=== PATIENT | male | born 1990 | race Caucasian/White ===

== ENCOUNTER 2019-02-02 18:59 | Emergency (ER) | payer MEDICAID, SELFPAY ==
--- NOTE | ~2019-02-02 | CT_ITS ---
EXAMINATION: CT abdomen pelvis w con DATE: 02/02/2019 21:09 INDICATION: Lower abdominal pain. TECHNIQUE: Computed tomography (CT) of the abdomen and pelvis was performed with 100 mL Omnipaque-350 intravenous contrast. Automated exposure control and iterative reconstruction technique were employe d. The dose-length product was 635.96 mGy-cm. COMPARISON: 05/18/2018 and 10/25/2014 FINDINGS: Chronic 6 mm pleural-based granuloma at the lateral right lower lobe. Lung bases are otherwise clear. Heart size is normal. No pericardial or pleural effusion. Liver, gallbladder, spleen, bilateral adre nal glands and kidneys are normal. 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 There is mild colonic diverticulosis with a sigmoid predominance. There is no adjacent inflammatory change to suggest diverticulitis. Sm all bowel and appendix are normal. Bladder and prostate are unremarkable. Small fat-containing umbili tan hernia. No free intraperitoneal gas or fluid. No pathologically enlarged abdominal or pelvic lymp hadenopathy. Chronic small bilateral fat-containing inguinal hernias. Subtle 2.5 cm sclerotic lesion at the right side of the L3 vertebral body. Dense T12 bone island. IMPRESSION: 1. No acute intra-abdominal/pelvic process. 2. Subtle 2.5 cm sclerotic lesion at the right side of the L3 vertebral body. There appeared to be th ickened trabeculated cephalad margin suggesting the possibility of hemangioma but would recommend fur ther evaluation with pre and postcontrast lumbar spine MR and/or bone scan. 3. 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 Could consider heat damaged red blood cell or sulfur colloid scan with SPECT imaging for more definitive determination. Reviewed, dictated and finalized at location A. [facility] IMPRESSION: 1. No acute intra-abdominal/pelvic process. 2. Subtle 2.5 cm sclerotic lesion at the right side of the L3 vertebral body. T here appeared to be thickened trabeculated cephalad margin suggesting the possi bility of hemangioma but would recommend further evaluation with pre and postco ntrast lumbar spine MR and/or bone scan. 3. 3.3 x 2.3 cm mass at the tail of the pancreas which is without significant i nterval change back to 2015 and which appears isodense to the spleen most likel y representing an intrapancreatic accessory spleen. Could consider heat damaged red blood cell or sulfur colloid scan with SPECT imaging for more definitive d etermination.
[2019-02-02 19:27] VITALS: BP 154/89; PULSE 74; RESP 20; TEMP 36.4; O2SAT 96
[2019-02-02] MEDS: SODIUM CHLORIDE 0.9% IV 1,000 ML 999 ML IV CONT (19:48)
[2019-02-02] MEDS: PANTOPRAZOLE SODIUM IV 40 MG VIAL IV PUSH (19:49)
[2019-02-02] MEDS: KETOROLAC 30 MG/ML VIAL (*BKC) IV PUSH (19:49)
[2019-02-02] MEDS: ONDANSETRON INJ 4 MG/2 ML VIAL IV PUSH (19:50)
[2019-02-02 20:20] LABS: Basophils Absolute Auto 0.04 K/mm3 (0.00-0.10); Basophils Percent Auto 0.6 % (0.0-1.0); Eosinophils Absolute Auto 0.11 K/mm3 (0.02-0.50); Eosinophils Percent Auto 1.6 % (1.0-6.0); Hematocrit 38.3 % (40.0-54.0); Hemoglobin 13.5 g/dL (14.0-18.0); Immature Granulocyte Absolute 0.02 K/mm3 (0.00-0.00); Immature Granulocyte Percent A 0.3 % (0.0-0.0); Lymphocytes Absolute Auto 2.03 K/mm3 (1.10-4.50); Lymphocytes Percent Auto 29.3 % (18.0-42.0); Mean Corpuscular HGB Conc 35.2 g/dL (32.0-36.0); Mean Corpuscular Hemoglobin 33.2 pg (27.0-31.0); Mean Corpuscular Volume 94.1 fL (78.0-102.0); Mean Platelet Volume 9.9 fl (8.7-11.0); Monocytes Absolute Auto 0.58 K/mm3 (0.10-0.90); Monocytes Percent Auto 8.4 % (2.0-11.0); Neutrophils Absolute Auto 4.2 K/mm3 (1.7-7.2); Neutrophils Percent Auto 59.8 % (50.0-70.0); Platelet Count Result 246 K/mm3 (150-420); Red Blood Count 4.07 M/mm3 (4.70-6.10); Red Cell Distribution Width 12.3 % (11.6-14.4); White Blood Count 6.9 K/mm3 (4.8-10.8)
--- NOTE | 2019-02-02 20:29 | ED.ABDPAIN ---
HPI - Abdominal Pain General Chief Complaint: Abdominal Pain Stated Complaint: STOMACH PAIN Source: patient Mode of arrival: ambulatory Limitations: no limitations History of Present Illness MD elicited complaint: abdominal pain Pertinent past history: none Onset (ago): day(s) Pain Consistency: constant Location: LLQ Severity: moderate Pain scale (0-10): 8 Quality: aching Radiation: none Migration to: no migration Exacerbating factors: nothing and eating Relieving factors: nothing Context: denies foreign travel Associated symptoms: denies other symptoms Related Data Home Medications Medication Instructions Recorded Confirmed ranitidine HCl [Acid Control 300 mg PO DAILY 02/02/19 02/02/19 (ranitidine)] verapamil 120 mg PO DAILY 02/02/19 02/02/19 Allergies Allergy/AdvReac Type Severity Reaction Status Date / Time No Known Allergies Allergy Verified 02/02/19 19:21 Review of Systems Review of Systems: All systems reviewed & are unremarkable except as noted in HPI and below Exam Const: General: no acute distress and alert Nutritional Appearance: well nourished Orientation/consciousness: oriented x3 HENMT: Head: normal to inspection Neck: Neck: normal visual inspection and no lymphadenopathy Chest: Chest palpation & inspection: normal inspection of the chest Resp: Effort & Inspection: normal respiratory effort Cardio: Rate: regular rate Rhythm: regular rhythm GI: Palpation (GI): Yes soft Auscultation: normal bowel sounds : Testes: normal Neuro: General: oriented x3 and moves all extremities Extrem: General: normal to inspection Psych: Mental Status: mental status grossly normal Affect: normal affect Attitude: cooperative Course Reevaluation(s) Reevaluation #1: patient symptoms have imprved after recieving pain medication and appears and feels comfortable, discussed results of his CT abd, and with his low potassium will give the pt 40 MEQ of KCL Date: 02/02/19 Time: 21:43 Vital Signs Vital signs: Vital Signs Temperature 36.4 C L 02/02/19 19:27 Pulse Rate 74 02/02/19 19:27 Respiratory Rate 20 02/02/19 19:27 Blood Pressure 154/89 H 02/02/19 19:27 Pulse Oximetry 96 02/02/19 19:27 Temperature 36.4 C L 02/02/19 19:27 Pulse Rate 74 02/02/19 19:27 Respiratory Rate 20 02/02/19 19:27 Blood Pressure 154/89 H 02/02/19 19:27 Pulse Oximetry 96 02/02/19 19:27 MDM - Abdominal Pain Lab Data Attestation: I reviewed the patient's lab results. Result diagrams: 02/02/19 20:05 02/02/19 20:05 Labs: Lab Results 02/02/19 02/02/19 Range/Units 20:05 20:05 WBC Pending RBC Pending Hgb Pending Hct Pending MCV Pending MCH Pending MCHC Pending RDW Pending Plt Count Pending MPV Pending Immature Gran % (Auto) Pending Neut % (Auto) Pending Lymph % (Auto) Pending [place] % (Auto) Pending Eos % (Auto) Pending Baso % (Auto) Pending Lymph # (Auto) Pending [place] # (Auto) Pending Eos # (Auto) Pending Baso # (Auto) Pending Abs Immat Gran (auto) Pending Absolute Neuts (auto) Pending Absolute Nucleated RBC Pending Nucleated RBC % Pending Sodium Pending Potassium Pending Chloride Pending Carbon Dioxide Pending Anion Gap Pending BUN Pending Creatinine Pending Estim Creat Clear Calc Pending Estimated GFR Pending Glucose Pending Calculated Osmolality Pending Calcium Pending Total Bilirubin Pending AST Pending ALT Pending Alkaline Phosphatase Pending Total Protein Pending Albumin Pending Lipase Pending Imaging Data Attestation: I personally reviewed and interpreted this imaging study as follows: Critical Care Time Critical Care Time Critical Care Time: No Discharge Plan Discharge Clinical Impression: Abdominal pain Qualifiers: Abdominal location: left
[2019-02-02 20:37] LABS: Alanine Aminotransferase 32 U/L (16-63); Albumin Level 3.9 g/dL (3.4-5.0); Alkaline Phosphatase 100 U/L (46-116); Aspartate Amino Transferase 27 U/L (15-37); Bilirubin,Total 1.1 mg/dL (0.00-1.00); Blood Urea Nitrogen 16 mg/dL (7-18); Calcium 8.3 mg/dL (8.5-10.1); Carbon Dioxide 24 mmol/L (21-32); Chloride 104 mmol/L (98-108); Estimated CRCL calculation 148 ml/min; Estimated Glomerular Filt Rate > 60; Glucose 96 mg/dL (70-99); Lipase 45 U/L (73-393); Osmolality Calculated 293 mOsm/kg (285-295); Sodium 141 mmol/L (136-145); Total Protein 7.4 g/dL (6.4-8.2)
[2019-02-02 20:38] LABS: Add Urine Microscopic? YES; Appearance Urine Sl Cloudy (Clear); Bilirubin Urine 2+ (Negative); Blood Urine Negative (Negative); Color Urine Amber (Yellow); Glucose Urine UA Negative (Negative); Ketones Urine 1+ (Negative); Leukocyte Esterase Ur Negative (Negative); Nitrate Urine Negative (Negative); Protein Urine Trace (Negative)
[2019-02-02 20:43] LABS: Amphetamine Screen Urine NEG. (Negative); Barbiturate Screen Urine NEG. (Negative); Benzodiazepines Screen Urine NEG. (Negative); Cannabinoid Screen Urine POS. (Negative); Cocaine Screen Urine NEG. (Negative); Methadone Screen Urine NEG. (Negative); Opiate Screen Urine NEG. (Negative); Phencyclidine Screen Urine NEG. (Negative)
[2019-02-02 21:14] LABS: Squamous Epithelial Cell Urine Rare /hpf (Few)
[2019-02-02 21:15] LABS: Mucus Urine Moderate /lpf
--- NOTE | 2019-02-07 16:12 | PC.NURSE ---
mikie entyr: 02/02/2019 @ 2059 1000ML 0.9% Normal Saline infused. discontinued the empty bag. IV site WNL.
== END 2019-02-02 21:56 | disposition home or self-care (01) ==
PROVIDERS: Emergency Provider Emergency Medicine; PCP Internal Medicine
DX: R10.32 Left lower quadrant pain (principal)
CPT/HCPCS: 36415; 74177; 80053; 80307; 81001; 83690; 85025; 96361; 96374; 96375; 99284; C9113; J1885; J2405; J7030; Q9967

== ENCOUNTER 2019-07-26 12:09 | Inpatient (IN) | payer OTHER, SELFPAY ==
--- NOTE | ~2019-07-26 | CT_ITS ---
EXAMINATION: CT abdomen pelvis w con DATE: 07/27/2019 13:37 INDICATION: Gastric pain and vomiting. Pancreatic mass seen on prior CT examination. TECHNIQUE: Computed tomography (CT) of the abdomen and pelvis was performed with 100 cc Omnipaque 350 intravenous contrast. The dose-length product was 432.44 mGy-cm. Automated exposure control and iter ative reconstruction technique were employed. COMPARISON: Comparison to multiple prior studies sequentially, with oldest reviewed study dated 03/2014. FINDINGS: There is a 3.3 x 2.4 cm pancreatic tail mass which is isodense to the spleen, without signi ficant interval change. There has been interval development of acute phlegmonous pancreatitis. No abs cess or pseudocyst formation is identified. Small amount of fluid in the right paracolic gutter. Mild diffuse bladder wall thickening. The liver, adrenal glands and kidneys are unremarkable. Gallbladder is moderately distended. Mildly p rominent retroperitoneal lymph nodes, likely reactive. Subtle lytic/sclerotic lesion of the L3 verteb ra on the right with slightly altered appearance compared with prior study. IMPRESSION: 1. Acute pancreatitis with moderate surrounding phlegmonous change. 2: Stable 3.3 cm pancreatic tail mass, isodense with the spleen. 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 3: Subtle change to mixed lytic/sclerotic lesion of L3. Recommend correlation with contrast-enhanced MRI or bone scan. 4: Diffuse concentric bladder wall thickening. Recommend correlation with urinalysis if there is cli nical concern for cystitis. Reviewed, dictated and finalized at location A. IMPRESSION: 1. Acute pancreatitis with moderate surrounding phlegmonous change. 2: Stable 3.3 cm pancreatic tail mass, isodense with the spleen. 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 3: Subtle change to mixed lytic/sclerotic lesion of L3. Recommend correlation w ith contrast-enhanced MRI or bone scan. 4: Diffuse concentric bladder wall thickening. Recommend correlation with urin alysis if there is clinical concern for cystitis.
--- NOTE | ~2019-07-26 | US_ITS ---
EXAMINATION: US right upper quadrant DATE: 07/29/2019 09:51 INDICATION: Right-sided epigastric pain. Pancreatitis. TECHNIQUE: Multiple grayscale and Doppler ultrasound images of the abdomen were obtained. COMPARISON: CT dated 07/27/2019 and ultrasound dated 04/09/2018 FINDINGS: Heterogeneous echogenicity at the body and more prominently at the partially visualized tail of the p ancreas consistent with edema in the setting of the given history of acute pancreatitis. Visualized p roximal inferior vena cava is normal. Liver has normal echogenicity and contour, with a smooth surfac e. No liver lesion identified. No intrahepatic biliary duct dilation suspected. Portal venous flow wa s seen in the hepatopetal, normal direction and has normal Doppler waveform. The gallbladder is alistair l in appearance. Subtle hypoechoic internal echogenic sludge in the gallbladder. No shadowing choleli thiasis. The common bile duct measures 4 mm, which is normal. Sonographic [place] sign was reported as negative by the restorative aide. IMPRESSION: 1. Heterogeneous echogenicity of the visualized pancreas consistent with edema in the setting of acut e pancreatitis. 2. Gallbladder sludge. No evident cholelithiasis. Reviewed, dictated and finalized at location A. IMPRESSION: 1. Heterogeneous echogenicity of the visualized pancreas consistent with edema in the setting of acute pancreatitis. 2. Gallbladder sludge. No evident cholelithiasis.
--- NOTE | ~2019-07-26 | XR_ITS ---
XR chest 2V DATE: 07/26/2019 12:52 INDICATION: Shortness of breath, chest pain. Epigastric pain and vomiting. TECHNIQUE: PA and lateral views COMPARISON: 04/08/2018 2 view chest FINDINGS: Normal heart size. No hilar or mediastinal enlargement. No pulmonary infiltrate or consolid ation, pleural effusion or pulmonary vascular congestion or pneumothorax. Gynecomastia is suggested. IMPRESSION: No active cardiopulmonary disease Reviewed, dictated and finalized at location A.
--- NOTE | 2019-07-26 12:19 | ED.ABDPAIN ---
HPI - Abdominal Pain General Chief Complaint: Abdominal Pain Stated Complaint: generalized abd pain Time Seen by Provider: 07/26/19 12:19 Source: patient Mode of arrival: ambulatory Limitations: no limitations History of Present Illness HPI narrative: 28-year-old man with a history of pancreatitis and alcoholism comes in today complaining of epigastric pain, dry heaves, belching and diarrhea that started last evening about 7 or 8. Patient states that he last drank 2 days ago. He has a history of allergies and so has had sinus pressure and nasal congestion but denies fever, sore throat, cough, shortness of breath, chest pain or sputum production. MD elicited complaint: abdominal pain Pertinent past history: other ( Pancreatitis) Onset (ago): hour(s) (16) Pain Consistency: constant Location: epigastric Severity: severe Quality: sharp Radiation: none Migration to: no migration Exacerbating factors: nothing Relieving factors: nothing Context: confirms history of similar episodes Associated symptoms: nausea, vomiting, diarrhea and anorexia Treatments prior to arrival: NSAIDs Related Data Home Medications Medication Instructions Recorded Confirmed ranitidine HCl [Acid Control 300 mg PO DAILY 02/02/19 02/02/19 (ranitidine)] verapamil 120 mg PO DAILY 02/02/19 02/02/19 Allergies Allergy/AdvReac Type Severity Reaction Status Date / Time No Known Allergies Allergy Verified 02/02/19 19:21 Review of Systems Constitutional: Constitutional: Denies chills, Reports fatigue, Denies fever(s) and Denies weakness Eyes: Eyes: Denies change in vision and Denies photophobia ENT: Reports as per HPI, Denies dysphagia, Reports nasal congestion and Denies sore throat Cardiovascular: Cardiovascular: Denies chest pain, Denies rapid heart rate and Denies radiating jaw, neck or arm pain Respiratory: Respiratory: Denies chest congestion, Denies cough, Denies dyspnea and Denies wheezing Gastrointestinal: Gastrointestinal: Reports as per HPI Genitourinary: Genitourinary: Denies hematuria, Denies dysuria and Denies urinary frequency Musculoskeletal: Musculoskeletal: Denies back pain, Denies arthralgias, Denies joint swelling and Denies muscle cramps Integumentary/Breasts: Skin/Breast: Denies pruritus, Denies erythema and Denies rash Neurologic: Denies vertigo, Denies dizziness, Denies syncope and Denies focal weakness Psychiatric: Psychiatric: Denies anxiety and Denies depression Endocrine: Endocrine: Denies polydipsia and Denies polyuria Hematologic/Lymphatic: Hematologic/Lymphatic: Denies easy bleeding and Denies easy bruising Allergic/Immunologic: Allergic/Immunologic: Denies tongue swelling and Denies wheezing PMFSH Past Medical History Medical History Alcoholism GERD (gastroesophageal reflux disease) Hypertension Pancreatitis Social History Social History Smoking status: Current every day smoker Alcohol intake: current Substance use: current Substance use type: marijuana Living arrangements: with family Exam Const: General: alert and ill appearing acutely Orientation/consciousness: patient oriented x3 Other: moderate acute distress HENMT: Ears: external ears normal, TM's normal bilaterally and EAC's normal Mouth: Yes Normal oral and palatal mucosa present and Yes moist mucous membranes Throat: posterior oropharynx normal ( save for diffuse erythema) and uvula midline Eyes: Conjunctivae: conjunctivae normal Pupils: Equal, round and reactive pupils present EOM: EOMs intact bilaterally Resp: Effort & Inspection: normal respiratory effort and not labored Auscultation: clear to auscultation bilaterally, no rales, no rhonchi and no wheezes Cardio: Rate: regular rate Rhythm: regular rhythm Heart sounds: no murmurs GI: Inspection: non-distended GI Palp: Yes Soft to palpation, Yes Tender
[2019-07-26 12:30] VITALS: BP 181/116; PULSE 74; RESP 18; TEMP 36.4; O2SAT 98
[2019-07-26] MEDS: HYDROMORPHONE HCL 2 MG/ML VIAL 0.5 MG IV PUSH (12:33)
[2019-07-26] MEDS: SODIUM CHLORIDE 0.9% IV 1,000 ML 999 ML IV CONT (12:33)
[2019-07-26] MEDS: ONDANSETRON INJ 4 MG/2 ML VIAL IV PUSH ×3 (12:34→21:34)
[2019-07-26] MEDS: PANTOPRAZOLE SODIUM IV 40 MG VIAL 80 MG IV PUSH (12:35)
[2019-07-26 12:50] LABS: Add Urine Microscopic? NO; Appearance Urine Clear (Clear); Bilirubin Urine Negative (Negative); Blood Urine Negative (Negative); Color Urine Yellow (Yellow); Glucose Urine UA Negative (Negative); Ketones Urine Negative (Negative); Leukocyte Esterase Ur Negative LEU/UL (Negative); Nitrate Urine Negative (Negative); Protein Urine Negative (Negative); Specific Grav Ur 1.025 (1.010-1.020); Urobilinogen Urine 0.2 mg/dL (0.2-1.0)
[2019-07-26 12:51] LABS: Basophils Absolute Auto 0.04 K/mm3 (0.00-0.10); Basophils Percent Auto 0.3 % (0.0-1.0); Eosinophils Absolute Auto 0.15 K/mm3 (0.02-0.50); Eosinophils Percent Auto 1.3 % (1.0-6.0); Hematocrit 45.4 % (40.0-54.0); Hemoglobin 16.3 g/dL (14.0-18.0); Immature Granulocyte Absolute 0.04 K/mm3 (0.00-0.00); Immature Granulocyte Percent A 0.3 % (0.0-0.0); Lymphocytes Absolute Auto 1.37 K/mm3 (1.10-4.50); Lymphocytes Percent Auto 11.6 % (18.0-42.0); Mean Corpuscular HGB Conc 35.9 g/dL (32.0-36.0); Mean Corpuscular Hemoglobin 33.2 pg (27.0-31.0); Mean Corpuscular Volume 92.5 fL (78.0-102.0); Mean Platelet Volume 10.1 fl (8.7-11.0); Monocytes Absolute Auto 0.71 K/mm3 (0.10-0.90); Neutrophils Absolute Auto 9.5 K/mm3 (1.7-7.2); Neutrophils Percent Auto 80.5 % (50.0-70.0); Platelet Count Result 211 K/mm3 (150-420); Red Blood Count 4.91 M/mm3 (4.70-6.10); Red Cell Distribution Width 12.9 % (11.6-14.4); White Blood Count 11.8 K/mm3 (4.8-10.8)
[2019-07-26 13:03] LABS: Partial Thromboplastin Time 27.8 SEC (22.3-31.6); Prothrombin Time 10.6 Seconds (9.64-11.0)
[2019-07-26 13:04] LABS: Alanine Aminotransferase 48 U/L (16-63); Albumin Level 4.1 g/dL (3.4-5.0); Alkaline Phosphatase 109 U/L (46-116); Anion Gap 16.6 mmol/L (7-16); Aspartate Amino Transferase 27 U/L (15-37); Bilirubin,Total 0.9 mg/dL (0.00-1.00); Blood Urea Nitrogen 17 mg/dL (7-18); Calcium 8.6 mg/dL (8.5-10.1); Carbon Dioxide 24 mmol/L (21-32); Chloride 101 mmol/L (98-108); Estimated CRCL calculation 147 ml/min; Estimated Glomerular Filt Rate > 60; Glucose 105 mg/dL (70-99); Lipase 1067 U/L (73-393); Osmolality Calculated 287 mOsm/kg (285-295); Potassium 3.6 mmol/L (3.5-5.1); Sodium 138 mmol/L (136-145); Total Protein 7.4 g/dL (6.4-8.2)
[2019-07-26 13:05] LABS: CRP 0.2 mg/dL (0.0-0.9)
[2019-07-26 13:15] VITALS: BP 179/109
[2019-07-26 13:40] VITALS: BP 168/105; PULSE 64; RESP 18
[2019-07-26 13:50] VITALS: BP 181/101; PULSE 60; RESP 18; TEMP 36.8; O2SAT 99; BMI 25.6
--- NOTE | 2019-07-26 13:58 | PC.NURSE ---
Here for observation for acute pancreatitis, abdominal pain, history of etoh use and use of marijuana, denies anyother drug use, pain now 11/03, no n/v, just cramping type pain worse ever, tried to stay at home but not able to endure pain any longer, call light in reach and educated on hospital procedures, NPO status
[2019-07-26] MEDS: DEXTROSE 5%/LACTATED RINGERS 1,000 ML 200 ML IV CONT ×2 (14:30→19:30)
[2019-07-26] MEDS: ENOXAPARIN 40 MG/0.4 ML SYRINGE SUB-Q (14:32)
[2019-07-26] MEDS: HYDROMORPHONE HCL 2 MG/ML VIAL 1 MG IV PUSH ×3 (15:06→21:34)
--- NOTE | 2019-07-26 15:10 | PC.NURSE ---
Dilaudid given for pain 11/03
[2019-07-26 15:32] VITALS: PULSE 74; RESP 18; TEMP 36.8; O2SAT 95
--- NOTE | 2019-07-26 15:34 | PC.NURSE ---
belching frequently no emesis, fluids infusing, NPO at this time
--- NOTE | 2019-07-26 16:06 | PC.NURSE ---
fluids infusing by IV, remains NPO at this time, pain slightly less
[2019-07-26] MEDS: POTASSIUM CHLORIDE 20 MEQ PACKET (FOR LIQUID) PO (16:36)
--- NOTE | 2019-07-26 16:37 | PC.NURSE ---
zofran given with oral potassium to reduce chance of vomiting, fluids infusing, no change in pain at this time, ice pack given for comfort
--- NOTE | 2019-07-26 17:38 | PC.NURSE ---
Fan given, no change in pain, no vomiting, still trying to get oral potassium down
--- NOTE | 2019-07-26 18:20 | PC.NURSE ---
pt reports pain in abd, medication given see MAR
--- NOTE | 2019-07-26 19:24 | PM.IMHP ---
H&P: HPI History of Present Illness Chief complaint: generalized abd pain Narrative: James Crow is a 28 year old male with a history of pancreatitis and alcohol abuse who comes to the emergency department today complaining of abdominal pain that started last evening. Patient states that he has had dry heaves and belching and nausea since. He has been unable to keep anything down. He states that his pain is constant and worse with palpation. he has had watery diarrhea as well. He states these are similar to his prior bouts of pancreatitis. He last drank on 07/23. Review of Systems Constitutional: Constitutional: Denies body ache(s), Denies chills, Reports fatigue, Denies night sweats and Denies weakness Eyes: Eyes: Denies blurry vision and Denies photophobia ENT: Reports nasal congestion Comments: (+) Sinus pressure. Cardiovascular: Cardiovascular: Denies chest pain, Denies diaphoresis, Denies pedal edema, Denies lightheadedness and Denies palpitations Respiratory: Respiratory: Denies chest congestion, Denies cough, Denies hemoptysis, Denies dyspnea, Denies dyspnea on exertion and Denies wheezing Gastrointestinal: Gastrointestinal: Reports abdominal pain, Denies melena, Denies hematochezia, Denies constipation, Reports diarrhea, Reports nausea, Reports vomiting and Denies hematemesis Genitourinary: Genitourinary: Denies hematuria, Denies dysuria, Denies urinary frequency and Denies urinary urgency Musculoskeletal: Musculoskeletal: Denies back pain, Denies arthralgias and Denies joint swelling Integumentary/Breasts: Skin/Breast: Denies erythema, Denies rash and Denies unusual bruising Neurologic: Denies confusion, Denies headache(s) and Denies numbness Psychiatric: Psychiatric: Denies anxiety and Denies depression Hematologic/Lymphatic: Hematologic/Lymphatic: Denies easy bleeding and Denies easy bruising Allergic/Immunologic: Allergic/Immunologic: Denies urticaria, Denies throat swelling and Denies wheezing PMFSH Past Medical History Medical History Alcoholism GERD (gastroesophageal reflux disease) Hypertension Pancreatitis Social History Social History Smoking packs per day: 1 Smoking cigarettes per day: 20.0 Years smoked: 12 Smoking pack-years: 12.00 Smoking status: Current every day smoker Tobacco type: cigarettes Second hand tobacco smoke exposure: Yes Alcohol intake: current Drinks per week: 36 Substance use: current Substance use type: marijuana Other substance usage details: smoked today Living arrangements: with family Gender identity (if verbalized by the patient): Male Spiritual care concerns: No Agree to blood products: Yes Meds Home Medications and Allergies Home Medications Medication Instructions Recorded Confirmed Type ranitidine HCl [Acid Control 300 mg PO DAILY 02/02/19 07/26/19 History (ranitidine)] verapamil 120 mg PO DAILY 02/02/19 07/26/19 History Allergies Allergy/AdvReac Type Severity Reaction Status Date / Time No Known Allergies Allergy Verified 02/02/19 19:21 Vital Signs Vital Signs - 24 hr 07/26/19 12:30 07/26/19 13:15 07/26/19 13:40 Temperature 36.4 C L Pulse Rate 74 64 Respiratory Rate 18 18 Blood Pressure 181/116 H 179/109 H 168/105 H Pulse Oximetry 98 07/26/19 13:50 07/26/19 15:32 Temperature 36.8 C 36.8 C Pulse Rate 60 74 Respiratory Rate 18 18 Blood Pressure 181/101 H Pulse Oximetry 99 95 Exam Const: General: in distress moderate and uncomfortable HENMT: Ears: TM's normal bilaterally General nose exam: Normal nares present Mouth: Yes moist mucous membranes Eyes: Sclera: sclerae normal Pupils: Equal, round and reactive pupils present EOM: EOMs intact bilaterally Neck: Neck: supple Lymphatic: lymphadenopathy not noted Resp: Effort & Inspection: normal respiratory effort A
--- NOTE | 2019-07-26 19:30 | PC.NURSE ---
iv fluids continue, pt watching movie on phone, c/o pain in abd but is improving
[2019-07-26] MEDS: NICOTINE (*PBKC) 14 MG PATCH 1 PATCH TRANSDERM (19:43)
[2019-07-26] MEDS: VERAPAMIL HCL ER 120 MG TABLET PO (19:43)
[2019-07-26] MEDS: PANTOPRAZOLE SODIUM IV 40 MG VIAL IV PUSH (20:31)
--- NOTE | 2019-07-26 21:35 | PC.NURSE ---
pt c/o pain in abd, medication given see MAY, urinal emptied dark yellow urine
--- NOTE | 2019-07-26 23:55 | PC.NURSE ---
Remains NPO; Lying in bed, watching T.V.; Skin pink, no distress noted. 1000ml D5LR infusing @200ml/hour per IV pump with no signs infiltration/infection.No signs of pain or discomfort.
[2019-07-27] VITALS (8 sets, daily range): BP systolic 170–182; BP diastolic 99–103; PULSE 60–70; RESP 18; TEMP 36.1–37.4; O2SAT 99–100
[2019-07-27] MEDS: DEXTROSE 5%/LACTATED RINGERS 1,000 ML 200 ML IV CONT ×2 (00:33→05:31)
[2019-07-27] MEDS: HYDROMORPHONE HCL 2 MG/ML VIAL 1 MG IV PUSH ×7 (00:34→21:19)
--- NOTE | 2019-07-27 00:35 | PC.NURSE ---
Patient states having pain #7, generalized through abdomen radiating to heart , left chest wall and right chest wall below nipple niecy. and also radiates to scrotum. Flacc Score:1.
--- NOTE | 2019-07-27 03:35 | PC.NURSE ---
Requests Zofran and Dilaudid. No signs of pain and/or complaints of nausea. States pain is getting better and is a 6 . Instructed in medication use and need to give medications at different times as Zofran can make pain medication stronger and increase risk of complications. Patient requests pain medication first. Agrees to follow up in half an hour.
[2019-07-27] MEDS: ONDANSETRON INJ 4 MG/2 ML VIAL IV PUSH ×3 (04:10→16:05)
--- NOTE | 2019-07-27 04:10 | PC.NURSE ---
States does not have nausea; has frequent belching until he feels he has to gag.Zofran 4mg IVP given for same.
[2019-07-27 05:42] LABS: Basophils Absolute Auto 0.03 K/mm3 (0.00-0.10); Basophils Percent Auto 0.2 % (0.0-1.0); Eosinophils Absolute Auto 0.17 K/mm3 (0.02-0.50); Eosinophils Percent Auto 1.3 % (1.0-6.0); Hematocrit 43.6 % (40.0-54.0); Hemoglobin 15.3 g/dL (14.0-18.0); Immature Granulocyte Absolute 0.04 K/mm3 (0.00-0.00); Immature Granulocyte Percent A 0.3 % (0.0-0.0); Lymphocytes Absolute Auto 1.11 K/mm3 (1.10-4.50); Lymphocytes Percent Auto 8.3 % (18.0-42.0); Mean Corpuscular HGB Conc 35.1 g/dL (32.0-36.0); Mean Corpuscular Hemoglobin 32.6 pg (27.0-31.0); Mean Corpuscular Volume 92.8 fL (78.0-102.0); Monocytes Percent Auto 6.7 % (2.0-11.0); Neutrophils Absolute Auto 11.2 K/mm3 (1.7-7.2); Neutrophils Percent Auto 83.2 % (50.0-70.0); Platelet Count Result 178 K/mm3 (150-420); Red Cell Distribution Width 12.8 % (11.6-14.4); White Blood Count 13.4 K/mm3 (4.8-10.8)
[2019-07-27 06:09] LABS: Alanine Aminotransferase 36 U/L (16-63); Albumin Level 3.6 g/dL (3.4-5.0); Alkaline Phosphatase 91 U/L (46-116); Anion Gap 14.6 mmol/L (7-16); Aspartate Amino Transferase 16 U/L (15-37); Bilirubin,Total 0.9 mg/dL (0.00-1.00); Blood Urea Nitrogen 7 mg/dL (7-18); Calcium 8.7 mg/dL (8.5-10.1); Carbon Dioxide 27 mmol/L (21-32); Chloride 100 mmol/L (98-108); Estimated CRCL calculation 172 ml/min; Estimated Glomerular Filt Rate > 60; Glucose 134 mg/dL (70-99); Osmolality Calculated 286 mOsm/kg (285-295); Potassium 3.6 mmol/L (3.5-5.1); Sodium 138 mmol/L (136-145); Total Protein 6.5 g/dL (6.4-8.2)
[2019-07-27] MEDS: VERAPAMIL HCL ER 120 MG TABLET PO (08:46)
[2019-07-27] MEDS: FAMOTIDINE 20 MG TABLET PO (08:46)
[2019-07-27] MEDS: NICOTINE (*PBKC) 14 MG PATCH 1 PATCH TRANSDERM (08:46)
[2019-07-27] MEDS: PANTOPRAZOLE SODIUM IV 40 MG VIAL IV PUSH ×2 (08:46→21:06)
[2019-07-27] MEDS: POTASSIUM CHLORIDE 20 MEQ PACKET (FOR LIQUID) PO ×2 (08:47→16:06)
[2019-07-27 09:13] LABS: Lipase > 1500 U/L (73-393)
[2019-07-27 09:29] LABS: Amphetamine Screen Urine Negative (Negative); Barbiturate Screen Urine Negative (Negative); Benzodiazepines Screen Urine Negative (Negative); Cannabinoid Screen Urine Positive (Negative); Cocaine Screen Urine Negative (Negative); Methadone Screen Urine Negative (Negative); Opiate Screen Urine Negative (Negative); Phencyclidine Screen Urine Negative (Negative)
[2019-07-27] MEDS: LACTATED RINGERS 1,000 ML 200 ML IV CONT ×3 (10:42→22:04)
--- NOTE | 2019-07-27 11:32 | PC.NURSE ---
Patient sitting up in bed. No signs of pain or discomfort. Patient states he is belching and gassy. Will continue to monitor. All personal effects with in patient reach.
--- NOTE | 2019-07-27 12:52 | PM.IMPN ---
Progress Note: A&P Assessment and Plan (1) Pancreatitis: Qualifiers: Acute pancreatitis complication: no infection or necrosis Chronicity: acute Pancreatitis type: alcohol induced Qualified Code(s): K85.20 - Alcohol induced acute pancreatitis without necrosis or infection Code(s): K85.90 - Acute pancreatitis without necrosis or infection, unspecified Status: Acute Assessment and Plan: Observation status Continue 200ml/hr IV fluids, nausea control, and pain control. Ordered CT since he has not followed up with Specialist as advised from his last CT scan from January of 2019 which showed a mass at the tail of his pancreas as well as a sclerotic lesion on his L3. IV pain and nausea medication until tolerating lipase trending up from 1067 yesterday to 1691 today. will attempt to restart oral intake once lipase shows a downtrend keep NPO at present. (2) Acute dehydration: Code(s): E86.0 - Dehydration Status: Acute Assessment and Plan: continue 200ml/hr IV fluids, monitor I & Os. will attempt to restart oral intake once lipase shows a downtrend improving (3) Acute prerenal azotemia: Code(s): R79.89 - Other specified abnormal findings of blood chemistry Status: Acute Assessment and Plan: Likely due to dehydration. improving and resolving repeating a CMP in the morning monitoring I and Os (4) Alcoholism: Code(s): F10.20 - Alcohol dependence, uncomplicated Status: Acute Assessment and Plan: Will monitor for signs of withdrawal and treat appropriately. Bedside glucose checks every 6-8 hours continue LR IV fluids at 200 mL an hour monitor for DT and any other signs or symptoms of alcohol withdrawal, currently none at this time may need Ativan p.r.n. and/or Librium p.r.n. if any withdrawal symptoms develop Subjective Date/time seen: 07/27/19 12:52 James was admitted yesterday with pancreatitis. He has stated that he is feeling better today than yesterday. He is a pleasant gentleman, been here for repeated pancreatitis hospitalizations due to chronic alcohol use and chronic fatty diet and chronic marijuana use. He is noncompliant following his pancreatitis protocol and follow-up visits with a GI physician. I have met him before on a few occasions during his hospital visits and have advised him to follow-up with the GI physician for further studies and to get this under control. He said when the abdominal pain started this time he stopped eating and stopped drinking as well at home to see if the abdominal pain would get better. Was likely how he became dehydrated. He then said he phoned his primary care physician Dr. Gambino, who advised him to come to the ER for further evaluation. Today he is currently resting in bed comfortably with with no evidence of abdominal pain or discomfort, he does have some mild abdominal discomfort with palpation and his lipase has not yet come down, it was a 1067 yesterday and up to 1691 today;will repeat labs in the morning tomorrow, will continue IV fluids at 200 mls an hour. He has been NPO since admission and we will keep him that way. His white count went up a little bit from 11.8 to 13.4. No fevers. His glucose has remained stable run 105 to 134. Bili and LFTs are within normal limits. his UA is clear his chest x-ray is clear, his urine drug screen confirmed marijuana, blood cultures x2 are pending. His vital signs are stable although his blood pressure is elevated. He had not received his home dose of Verapamil 120 mg yet, so I have asked nursing staff to repeat his blood pressures after receiving his home dose. His heart rate ranges from 60 to 74, respiratory rate 18, 95-100% on room air, lungs are clear. He does work at [employer] and could have been exposed to COVID; but no known sources that he is aware of and he denies fevers denies cough denies congestion denies shortness of breath. I have
[2019-07-27] MEDS: ENOXAPARIN 40 MG/0.4 ML SYRINGE SUB-Q (14:19)
--- NOTE | 2019-07-27 15:11 | PC.NURSE ---
Patient status changed to inpatient. Patient resting comfortably in bed at the moment. All personal effects within reach, No further needs stated.
[2019-07-27 15:25] LABS: Lipase 1073 U/L (73-393)
[2019-07-27] MEDS: hydrALAZINE 10 MG TABLET PO (16:05)
[2019-07-27 16:12] LABS: Glucose Point of Care 86 (65-105)
--- NOTE | 2019-07-27 18:17 | PM.EVENT ---
Event Note Event Note Event Note: Chart, labs and images reviewed. Pt's pain persists. Using Dilaudid 1 mg q 3 hours. Lipase and WBC show mild increase. Epigastric tenderness on exam. No bloating. BP systolic and diastolic elevated Pancreatitis - pain is stable. Lipase without huge increase. Discussed with Amanda Yee, agree with note and plan. ,
--- NOTE | 2019-07-27 23:58 | PC.NURSE ---
Famotidine IV unavailable. Doctor notified. New order received for famotidine PO.
[2019-07-28] VITALS: BP 163/48; PULSE 100; RESP 16; TEMP 36.5; O2SAT 98
[2019-07-28] MEDS: ONDANSETRON INJ 4 MG/2 ML VIAL IV PUSH (00:24)
[2019-07-28] MEDS: HYDROMORPHONE HCL 2 MG/ML VIAL 1 MG IV PUSH ×3 (00:24→07:22)
[2019-07-28] MEDS: LACTATED RINGERS 1,000 ML 200 ML IV CONT ×4 (03:46→21:38)
[2019-07-28 06:01] LABS: Hematocrit 41.2 % (40.0-54.0); Hemoglobin 14.5 g/dL (14.0-18.0); Mean Corpuscular HGB Conc 35.2 g/dL (32.0-36.0); Mean Corpuscular Volume 93.6 fL (78.0-102.0); Mean Platelet Volume 10.7 fl (8.7-11.0); Platelet Count Result 169 K/mm3 (150-420); Red Cell Distribution Width 13.1 % (11.6-14.4); White Blood Count 9.2 K/mm3 (4.8-10.8)
[2019-07-28 06:27] LABS: Alanine Aminotransferase 27 U/L (16-63); Albumin Level 3.2 g/dL (3.4-5.0); Alkaline Phosphatase 86 U/L (46-116); Anion Gap 15.7 mmol/L (7-16); Aspartate Amino Transferase 13 U/L (15-37); Bilirubin,Total 1.1 mg/dL (0.00-1.00); Blood Urea Nitrogen 6 mg/dL (7-18); Carbon Dioxide 26 mmol/L (21-32); Chloride 101 mmol/L (98-108); Estimated CRCL calculation 183 ml/min; Estimated Glomerular Filt Rate > 60; Glucose 84 mg/dL (70-99); Osmolality Calculated 284 mOsm/kg (285-295); Potassium 3.7 mmol/L (3.5-5.1); Sodium 139 mmol/L (136-145); Total Protein 6.2 g/dL (6.4-8.2)
[2019-07-28 06:31] LABS: Calcium 8.7 mg/dL (8.5-10.1)
[2019-07-28 06:32] LABS: Lipase 440 U/L (73-393)
[2019-07-28 08:00] VITALS: BP 134/75; PULSE 66; RESP 18; TEMP 36.2; O2SAT 98
[2019-07-28] MEDS: PANTOPRAZOLE SODIUM IV 40 MG VIAL IV PUSH ×2 (08:33→21:11)
[2019-07-28] MEDS: NICOTINE (*PBKC) 14 MG PATCH 1 PATCH TRANSDERM (08:33)
[2019-07-28] MEDS: VERAPAMIL HCL ER 120 MG TABLET PO (08:37)
[2019-07-28] MEDS: POTASSIUM CHLORIDE 20 MEQ PACKET (FOR LIQUID) PO ×2 (08:37→16:10)
[2019-07-28] MEDS: FAMOTIDINE 20 MG TABLET PO ×2 (08:37→21:11)
--- NOTE | 2019-07-28 10:43 | PM.IMPN ---
Progress Note: A&P Assessment and Plan (1) Pancreatitis: Qualifiers: Acute pancreatitis complication: no infection or necrosis Chronicity: acute Pancreatitis type: alcohol induced Qualified Code(s): K85.20 - Alcohol induced acute pancreatitis without necrosis or infection Code(s): K85.90 - Acute pancreatitis without necrosis or infection, unspecified Status: Acute Assessment and Plan: Observation status Continue 200ml/hr IV fluids, nausea control, and pain control. Ordered CT since he has not followed up with Specialist as advised from his last CT scan from January of 2019 which showed a mass at the tail of his pancreas as well as a sclerotic lesion on his L3. IV pain and nausea medication until tolerating lipase trending up from 1067 yesterday to 1691 today. will attempt to restart oral intake once lipase shows a downtrend keep NPO at present. Ordered US of abdomen continue to monitor Lipase , checking amylase. (2) Acute dehydration: Code(s): E86.0 - Dehydration Status: Acute Assessment and Plan: continue 200ml/hr IV fluids, monitor I & Os. will attempt to restart oral intake once lipase shows a downtrend and pain has improved. improving (3) Acute prerenal azotemia: Code(s): R79.89 - Other specified abnormal findings of blood chemistry Status: Acute Assessment and Plan: Likely due to dehydration. improving and resolving repeating a CMP in the morning monitoring I and Os (4) Alcoholism: Code(s): F10.20 - Alcohol dependence, uncomplicated Status: Acute Assessment and Plan: Will monitor for signs of withdrawal and treat appropriately. Bedside glucose checks every 6-8 hours continue LR IV fluids at 200 mL an hour monitor for DT and any other signs or symptoms of alcohol withdrawal, currently none at this time may need Ativan p.r.n. and/or Librium p.r.n. if any withdrawal symptoms develop no s/s of withdrawal at this time. Subjective Date/time seen: 07/28/19 10:43 Today James continues to complain of upper abdominal pain especially on the right side and in the epigastric region. He does have his gallbladder in place and on the CT scan it was moderately distended. Ordered an ultrasound to get a better look at his gallbladder, to be completed in the morning , as ultrasound is not available today. Will keep him NPO and continue to 100 mL an hour IV fluids. Repeat labs in lipase level in the morning as well as repeat lipase today at 4:00 p.m.. His lipase levels had improved significantly yesterday was a 1074 and this morning was 440. His blood pressure this morning was improved with a systolic in the 130s. He did receive p.r.n. hydralazine yesterday late afternoon due to systolics greater than 170. His home dose of verapamil 120 mg continues. The elevation in blood pressure may be due to pain and/or IV fluids. So we will continue p.r.n. hydralazine. He continues to deny chest pain, shortness of breath, chest pressure, arm or shoulder numbness. I have given the patient a copy of his CT scan as well as written instructions to follow-up with his primary care physician as well as a hog killer after discharge for further diagnostic studies including an MRI of his lumbar spine and his pancreas. He voiced understanding. Review of Systems Review of Systems: All systems reviewed & are unremarkable except as noted in HPI and below Constitutional: Constitutional: Reports as per HPI, Denies body ache(s), Denies chills, Denies fatigue, Denies fever(s), Denies headache(s), Denies night sweats and Denies weakness Eyes: Eyes: Reports as per HPI, Denies blurry vision, Denies change in vision and Denies photophobia ENT: Reports as per HPI, Reports Normal hearing present, Denies dysphagia, Denies vertigo, Denies dizziness, Denies headache(s), Denies nasal congestion, Denies tinnitus, Denies sore throat, Denies throat swelling and D
[2019-07-28 12:43] LABS: Amylase 78 U/L (25-115)
[2019-07-28 16:00] VITALS: BP 145/90; PULSE 65; RESP 16; TEMP 36.6; O2SAT 99
[2019-07-28] MEDS: ENOXAPARIN 40 MG/0.4 ML SYRINGE SUB-Q (16:09)
[2019-07-28] MEDS: METOCLOPRAMIDE HCL INJ 10 MG/2 ML VIAL IV PUSH (16:10)
[2019-07-28 16:24] LABS: Lipase 352 U/L (73-393)
[2019-07-29] VITALS: BP 166/88; PULSE 60; RESP 14; TEMP 36.6; O2SAT 99
[2019-07-29] MEDS: LACTATED RINGERS 1,000 ML 200 ML IV CONT ×2 (02:51→08:02)
[2019-07-29 05:59] LABS: Hematocrit 39.6 % (40.0-54.0); Hemoglobin 13.9 g/dL (14.0-18.0); Mean Corpuscular HGB Conc 35.1 g/dL (32.0-36.0); Mean Corpuscular Volume 94.1 fL (78.0-102.0); Mean Platelet Volume 10.5 fl (8.7-11.0); Platelet Count Result 182 K/mm3 (150-420); Red Blood Count 4.21 M/mm3 (4.70-6.10); White Blood Count 6.5 K/mm3 (4.8-10.8)
[2019-07-29 06:45] LABS: Alanine Aminotransferase 23 U/L (16-63); Albumin Level 3.2 g/dL (3.4-5.0); Alkaline Phosphatase 85 U/L (46-116); Anion Gap 15.8 mmol/L (7-16); Aspartate Amino Transferase 14 U/L (15-37); Bilirubin,Total 0.6 mg/dL (0.00-1.00); Blood Urea Nitrogen 9 mg/dL (7-18); Calcium 8.6 mg/dL (8.5-10.1); Carbon Dioxide 26 mmol/L (21-32); Chloride 101 mmol/L (98-108); Estimated CRCL calculation 165 ml/min; Estimated Glomerular Filt Rate > 60; Glucose 69 mg/dL (70-99); Lipase 327 U/L (73-393); Osmolality Calculated 284 mOsm/kg (285-295); Potassium 3.8 mmol/L (3.5-5.1); Sodium 139 mmol/L (136-145); Total Protein 6.2 g/dL (6.4-8.2)
[2019-07-29 07:46] VITALS: BP 153/99; PULSE 63; RESP 18; TEMP 35.8
[2019-07-29] MEDS: VERAPAMIL HCL ER 120 MG TABLET PO (08:05)
[2019-07-29] MEDS: NICOTINE (*PBKC) 14 MG PATCH 1 PATCH TRANSDERM (08:06)
[2019-07-29] MEDS: PANTOPRAZOLE SODIUM IV 40 MG VIAL IV PUSH (08:06)
[2019-07-29 08:27] LABS: Glucose Point of Care 63 (65-105)
[2019-07-29] MEDS: FAMOTIDINE 20 MG TABLET PO (09:58)
--- NOTE | 2019-07-29 10:52 | PC.NURSE ---
Pain relieved. clear liquids served. LR infusing at 200ml/hr
--- NOTE | 2019-07-29 10:59 | PM.DS ---
DS: Diagnosis Admitting Diagnosis Admitting Diagnosis: Alcohol induced acute pancreatitis without necrosis or infection Discharge Diagnosis (1) Pancreatitis: Qualifiers: Acute pancreatitis complication: no infection or necrosis Chronicity: acute Pancreatitis type: alcohol induced Qualified Code(s): K85.20 - Alcohol induced acute pancreatitis without necrosis or infection Code(s): K85.90 - Acute pancreatitis without necrosis or infection, unspecified Status: Acute Assessment and Plan: Inpatient status D/C'd 200ml/hr IV fluids, No N/V/Pain today or last night. tolerating oral pain medications today well. no pain with palpitation this morning or this afternoon lipase Levels have all been within normal limits, yesterday afternoon was 352, and this morning was 327 he tolerated a full liquid diet with no pain afterwards and no increase of pain later this afternoon after his lunch he has not been requiring IV pain medicine the ultrasound of his abdomen showed heterogenous echogenicity of the visualized pancreas consistent with edema of acute pancreatitis, as well as gallbladder sludge. amylase level yesterday was normal Instructed him to follow-up with PCP, GI, and get the MRIs that I ordered completed on an outpatient basis as soon as possible. (2) Acute dehydration: Code(s): E86.0 - Dehydration Status: Acute Assessment and Plan: continue to encourage oral hydration, improved discharge today (3) Acute prerenal azotemia: Code(s): R79.89 - Other specified abnormal findings of blood chemistry Status: Acute Assessment and Plan: Likely due to dehydration. improved and resolved completely discharge today (4) Alcoholism: Code(s): F10.20 - Alcohol dependence, uncomplicated Status: Acute Assessment and Plan: he never did show signs of withdrawal or DTs glucose levels were well controlled continue LR IV fluids at 200 mL an hour no s/s of withdrawal at this time. will discharge to home with expected follow-ups ordered. DS: Summary Time Spent with Patient Time attestation: Total time spent providing and/or coordinating discharge services:>60 minutes Exam Const: General: comfortable, no acute distress, alert and ill appearing acutely; No confusion Orientation/consciousness: patient oriented x3 and No confusion Other: moderate acute distress HENMT: Ears: external ears normal, TM's normal bilaterally and EAC's normal General nose exam: Normal nares present Mouth: Yes Normal oral and palatal mucosa present and Yes moist mucous membranes Throat: posterior oropharynx normal ( save for diffuse erythema) and uvula midline Eyes: General: appearance normal, both eyes and all related structures Conjunctivae: conjunctivae normal Sclera: sclerae normal Pupils: Equal, round and reactive pupils present EOM: EOMs intact bilaterally Direct Ophthalmoscopy: No photophobia Neck: Neck: supple Lymphatic: lymphadenopathy not noted Resp: Effort & Inspection: normal respiratory effort and not labored Auscultation: clear to auscultation bilaterally, no crackles, no rales, no rhonchi and no wheezes Cardio: Rate: regular rate Rhythm: regular rhythm Heart sounds: no gallops, no murmurs and no rubs Bruits: no abdominal aortic bruits GI: Inspection: normal to inspection, non-distended, no large pannus and no obesity Auscultation: normal bowel sounds, bowels sounds normal and Hypoactive bowel sounds present Rectal Exam: No deferred Skin: General skin exam: normal color, no rashes or lesions noted, no erythema, no jaundice and no pallor Rashes: no rashes Wounds: no wounds Neuro: General: patient oriented x3, gait normal, moves all extremities, no focal motor deficits, CN's II-XI intact bilaterally and No confusion Cranial nerves: Yes Equal, round and reactive pupils present and Yes Normal hearing present Cognition (Neuro): normal cognition Sp
--- NOTE | 2019-07-29 23:25 | PM.EVENT ---
Event Note Event Note Event Note: Patient states he feels much better and is ready to go home. He states his pain is minimal and has been tolerating p.o.. Mucous membranes are moist and pink. Lungs are clear to auscultation bilaterally. Regular rate rhythm without murmur rub or gallop. Minimal epigastric tenderness without guarding, masses or distension. Extremities are warm dry and pink. Home today with close follow-up. I have examined the patient reviewed the chart. I discussed the patient's care with A Joselito FOUNTAIN and agree with her assessment and plan.
== END 2019-07-29 14:20 | disposition home or self-care (01) | DRG 282 ==
LOC: CHSED 13:13 → CHS2ND 13:34
PROVIDERS: Nurse Practitioner; Admitting Provider Emergency Medicine; Emergency Provider Emergency Medicine; PCP Internal Medicine; Visit Provider Family Medicine
DX: K85.20 Alcohol induced acute pancreatitis without necrosis or infection (principal); K86.0 Alcohol-induced chronic pancreatitis; E86.0 Dehydration; F10.20 Alcohol dependence, uncomplicated
CPT/HCPCS: 36415; 71046; 74177; 76705; 80053; 80307; 81003; 82150; 83605; 83690; 85025; 85027; 85610; 85730; 86140; 87040; 96361; 96372; 96374; 96375; 96376; 99285; A9270; C9113; G0378; G0379; J1170; J1200; J1650; J2405; J2765; J7030; J7120; J7121; Q9965

== ENCOUNTER 2019-09-21 19:24 | Inpatient (IN) | payer OTHER, SELFPAY ==
[2019-09-21 19:37] VITALS: BP 179/100; PULSE 68; RESP 20; TEMP 36.8; O2SAT 100
--- NOTE | 2019-09-21 19:41 | ECG_ITS ---
Measurements Intervals [place] Rate: 60 P: 38 AR: 146 QRS: 50 QRSD: 99 T: 48 QT: 407 QTc: 409 Interpretive Statements SINUS RHYTHM BASELINE WANDER- II, III NORMAL ECG Electronically Signed On 09-22-2019 17:18:47 CDT by Aroldo Hughes D.O.
--- NOTE | 2019-09-21 19:44 | ED.GENADULT ---
HPI - General Adult General Chief complaint: Abdominal Pain Stated complaint: pancreatitis flare up History of Present Illness HPI narrative: James is a 28M with a PMH of recurrent acute pancreatitis, etoh abuse, and HTN that presented to the ER with abdominal pain. The cramping pain started in his right mid back 2 days ago and migrated to his epigastric region and LUQ. It is associated with anorexia, nausea, but no vomiting, no diarrhea, no SOB, no dysuria. Related Data Home Medications Medication Instructions Recorded Confirmed No Home Medications 09/21/19 09/21/19 Allergies Allergy/AdvReac Type Severity Reaction Status Date / Time No Known Allergies Allergy Verified 02/02/19 19:21 Review of Systems Constitutional: Constitutional: Reports as per HPI, Denies chills, Reports fatigue and Denies fever(s) Eyes: Eyes: Reports no additional eye complaints ENT: Reports system reviewed and no additional complaints, except as documented Cardiovascular: Cardiovascular: Reports no additional cardiovascular complaints Respiratory: Respiratory: Reports no additional respiratory complaints Gastrointestinal: Gastrointestinal: Reports as per HPI Genitourinary: Genitourinary: Reports no additional male genitourinary complaints Musculoskeletal: Musculoskeletal: Reports no additional musculoskeletal complaints Integumentary/Breasts: Skin/Breast: Reports system reviewed and no additional complaints, except as docu Neurologic: Reports system reviewed and no additional complaints, except as documented Psychiatric: Psychiatric: Reports no additional psychiatric complaints Endocrine: Endocrine: Reports no additional endocrine complaints Hematologic/Lymphatic: Hematologic/Lymphatic: Reports no additional hematologic/lymphatic complaints Allergic/Immunologic: Allergic/Immunologic: Reports no additional allergic/immunologic complaints [facility] Past Medical History Medical History Alcoholism GERD (gastroesophageal reflux disease) Hypertension Pancreatitis Social History Social History Smoking packs per day: 1 Smoking cigarettes per day: 20.0 Years smoked: 12 Smoking pack-years: 12.00 Smoking status: Current every day smoker Tobacco type: cigarettes Second hand tobacco smoke exposure: Yes Alcohol intake: current Drinks per week: 36 Substance use: current Substance use type: marijuana Other substance usage details: smoked today Gender identity (if verbalized by the patient): Male Spiritual care concerns: No Agree to blood products: Yes Exam Const: General: no acute distress and alert Orientation/consciousness: patient oriented x3 Limitations: No altered mental status HENMT: Head: normal to inspection Eyes: Pupils: Equal, round and reactive pupils present Neck: Neck: normal visual inspection Chest: Chest palpation & inspection: normal inspection of the chest Resp: Effort & Inspection: normal respiratory effort Auscultation: clear to auscultation bilaterally Cardio: Rate: regular rate Rhythm: regular rhythm Heart sounds: no murmurs GI: GI Palp: Yes Soft to palpation, No Guarding due to palpation present (GI) and No Rigid due to palpation Other: TTP in the epigastric region and LUQ, no rebound tenderness or guarding. Normal bowel sounds. : Other: No CVA tenderness Skin: General skin exam: normal color Rashes: no rashes Neuro: General: patient oriented x3 and moves all extremities Extrem: General: normal to inspection Psych: Mental Status: mental status grossly normal Course Course Emergency Course: James was seen and evaluated ordered labs as below. He was given dilaudid for pain. Labs showed slight leukocytosis and very elevated lipase consistent with pancreatitis. He was given a second liter of LR then will continue to LR at 150ml per hour. He will
[2019-09-21] MEDS: HYDROMORPHONE HCL 2 MG/ML VIAL 0.5 MG IV PUSH (19:48)
[2019-09-21 20:00] LABS: Basophils Absolute Auto 0.05 K/mm3 (0.00-0.10); Basophils Percent Auto 0.4 % (0.0-1.0); Eosinophils Absolute Auto 0.28 K/mm3 (0.02-0.50); Eosinophils Percent Auto 2.2 % (1.0-6.0); Hematocrit 45.2 % (40.0-54.0); Hemoglobin 16.1 g/dL (14.0-18.0); Immature Granulocyte Absolute 0.04 K/mm3 (0.00-0.00); Immature Granulocyte Percent A 0.3 % (0.0-0.0); Lymphocytes Percent Auto 8.7 % (18.0-42.0); Mean Corpuscular HGB Conc 35.6 g/dL (32.0-36.0); Mean Corpuscular Hemoglobin 33.2 pg (27.0-31.0); Mean Corpuscular Volume 93.2 fL (78.0-102.0); Mean Platelet Volume 10.2 fl (8.7-11.0); Monocytes Absolute Auto 0.93 K/mm3 (0.10-0.90); Monocytes Percent Auto 7.3 % (2.0-11.0); Neutrophils Absolute Auto 10.3 K/mm3 (1.7-7.2); Neutrophils Percent Auto 81.1 % (50.0-70.0); Platelet Count Result 232 K/mm3 (150-420); Red Blood Count 4.85 M/mm3 (4.70-6.10); Red Cell Distribution Width 12.8 % (11.6-14.4); White Blood Count 12.7 K/mm3 (4.8-10.8)
[2019-09-21 20:01] LABS: Add Urine Microscopic? YES; Appearance Urine Clear (Clear); Bilirubin Urine 1+ (Negative); Blood Urine Negative (Negative); Color Urine Yellow (Yellow); Glucose Urine UA Negative (Negative); Ketones Urine 2+ (Negative); Leukocyte Esterase Ur Negative LEU/UL (Negative); Nitrate Urine Negative (Negative); Protein Urine 1+ (Negative); Urobilinogen Urine 0.2 mg/dL (0.2-1.0)
[2019-09-21] MEDS: LACTATED RINGERS 1,000 ML 999 ML IV CONT ×2 (20:01→22:08)
[2019-09-21 20:07] LABS: Bacteria Urine None seen /hpf; Mucus Urine Few /lpf; RBC Urine None seen /hpf (0-2); Squamous Epithelial Cell Urine Rare /hpf (Few); WBC Urine None seen /hpf (0-3)
[2019-09-21 20:12] LABS: Prothrombin Time 10.4 Seconds (9.64-11.0)
[2019-09-21 20:23] LABS: Lactic Acid Reflex 0.5 mmol/L (0.4-2.0); Troponin I < 0.02 ng/mL (0.00-0.056)
[2019-09-21 20:27] LABS: Alanine Aminotransferase 55 U/L (16-63); Albumin Level 4.2 g/dL (3.4-5.0); Alkaline Phosphatase 128 U/L (46-116); Anion Gap 16.7 mmol/L (7-16); Aspartate Amino Transferase 38 U/L (15-37); Bilirubin,Total 1.1 mg/dL (0.00-1.00); Blood Urea Nitrogen 13 mg/dL (7-18); Calcium 8.8 mg/dL (8.5-10.1); Carbon Dioxide 23 mmol/L (21-32); Chloride 99 mmol/L (98-108); Estimated Glomerular Filt Rate > 60; Glucose 109 mg/dL (70-99); Osmolality Calculated 281 mOsm/kg (285-295); Potassium 3.7 mmol/L (3.5-5.1); Sodium 135 mmol/L (136-145); Total Protein 7.8 g/dL (6.4-8.2)
[2019-09-21 20:28] LABS: Lipase 1827 U/L (73-393)
[2019-09-21 20:42] VITALS: BP 191/111; PULSE 62; RESP 16; O2SAT 98
[2019-09-21 20:58] VITALS: BMI 26.2
[2019-09-21] MEDS: ONDANSETRON INJ 4 MG/2 ML VIAL IV PUSH (21:03)
[2019-09-21 21:38] VITALS: BP 180/98; PULSE 55; RESP 14; TEMP 37; O2SAT 99
[2019-09-21] MEDS: HYDROMORPHONE HCL 2 MG/ML VIAL 1 MG IV PUSH (23:19)
[2019-09-21] MEDS: LACTATED RINGERS 1,000 ML 150 ML IV CONT (23:24)
[2019-09-22] VITALS: BP 182/97; PULSE 61; RESP 16; TEMP 37; O2SAT 99
[2019-09-22] MEDS: HYDROMORPHONE HCL 2 MG/ML VIAL 1 MG IV PUSH ×4 (02:19→11:54)
[2019-09-22 04:00] VITALS: BP 164/95; PULSE 68; RESP 14; TEMP 37.6; O2SAT 98
[2019-09-22] MEDS: ONDANSETRON INJ 4 MG/2 ML VIAL IV PUSH ×4 (04:15→23:57)
[2019-09-22 08:00] VITALS: BP 178/101; PULSE 70; RESP 20; TEMP 37.1; O2SAT 94
[2019-09-22] MEDS: VERAPAMIL HCL ER 120 MG TABLET PO (08:50)
[2019-09-22] MEDS: PANTOPRAZOLE SODIUM IV 40 MG VIAL IV PUSH (08:50)
[2019-09-22] MEDS: ENOXAPARIN 40 MG/0.4 ML SYRINGE SUB-Q (08:51)
[2019-09-22 09:44] LABS: Hematocrit 43.2 % (40.0-54.0); Hemoglobin 15.2 g/dL (14.0-18.0); Mean Corpuscular HGB Conc 35.2 g/dL (32.0-36.0); Mean Corpuscular Volume 93.7 fL (78.0-102.0); Mean Platelet Volume 10.2 fl (8.7-11.0); Platelet Count Result 187 K/mm3 (150-420); Red Blood Count 4.61 M/mm3 (4.70-6.10); Red Cell Distribution Width 12.7 % (11.6-14.4); White Blood Count 13.1 K/mm3 (4.8-10.8)
[2019-09-22 10:02] LABS: Alanine Aminotransferase 43 U/L (16-63); Albumin Level 3.6 g/dL (3.4-5.0); Alkaline Phosphatase 111 U/L (46-116); Anion Gap 15.6 mmol/L (7-16); Aspartate Amino Transferase 29 U/L (15-37); Bilirubin,Total 0.8 mg/dL (0.00-1.00); Blood Urea Nitrogen 8 mg/dL (7-18); Calcium 8.5 mg/dL (8.5-10.1); Carbon Dioxide 26 mmol/L (21-32); Chloride 98 mmol/L (98-108); Estimated CRCL calculation 142 ml/min; Estimated Glomerular Filt Rate > 60; Glucose 90 mg/dL (70-99); Lipase 1069 U/L (73-393); Osmolality Calculated 280 mOsm/kg (285-295); Potassium 3.6 mmol/L (3.5-5.1); Sodium 136 mmol/L (136-145); Total Protein 6.8 g/dL (6.4-8.2)
--- NOTE | 2019-09-22 11:08 | PM.IMHP ---
H&P: HPI History of Present Illness Chief complaint: pancreatitis flare up Narrative: James Crow is a 28 year old male presented to the ED today with complaints of abdominal pain. Patient has a past medical history of alcoholism, GERD, hypertension, pancreatitis. According to patient has pain started 2 days ago the right side of his abdomen that later spread to his epigastric region and left upper quadrant. Patient does drink a 6 pack a day with 2 managers size whiskeys . He is a frequent Flyer of this hospital. His last admission was 07/29/2019 for pancreatitis. today patient noted that he he continues to have abdominal pain but denies any pains while palpating. He also noted that his nausea vomiting has resolved. His vital signs are 178/101, 70, 20, 98.7, 94% on room air. Patient's troponins were negative in the ED his lipase admission was 1827 is currently 1069, his AST 38. Patient was admitted for acute pancreatitis he will be hydrated with lactated Ringer at 150 mL/hours , patient was NPO on admission. Patient notes that he no longer has nausea vomiting I will advance his diet to clear liquid diet repeat lipase in the a.m.. Patient able to tolerate all meals , slept well and ambulate at baseline. Patient denies SOB, CP, palpitation, extremity numbness, lightheadness, dizziness, constipation, diarrhea, chills or fever. if patient lipase is below 700 and he is asymptomatic he will discharge in the a.m. Review of Systems Review of Systems: Narrative: CONSTITUTIONAL :No weight loss, fever, chills, weakness or fatigue.: HEENT: Eyes: No diplopia or blurred vision. ENT: No earache, sore throat or runny nose. CARDIOVASCULAR: No pressure, squeezing, strangling, tightness, heaviness or aching about the chest, neck, axilla or epigastrium. RESPIRATORY: No cough, shortness of breath, PND or orthopnea. GASTROINTESTINAL: left upper quadrant tenderness ,nausea that has resolved without vomiting. GENITOURINARY: No dysuria, frequency or urgency. MUSCULOSKELETAL: No muscle, back pain, joint pain or stiffness. SKIN: No change in skin, hair or nails. NEUROLOGIC: No paresthesias, fasciculations, seizures or weakness. PSYCHIATRIC: No disorder of thought or mood. ENDOCRINE: No heat or cold intolerance, polyuria or polydipsia. HEMATOLOGICAL: No easy bruising or bleeding. [facility] Past Medical History Medical History Alcoholism GERD (gastroesophageal reflux disease) Hypertension Pancreatitis Social History Social History Smoking packs per day: 1 Smoking cigarettes per day: 20.0 Years smoked: 12 Smoking pack-years: 12.00 Smoking status: Heavy tobacco smoker Tobacco type: cigarettes Second hand tobacco smoke exposure: Yes Alcohol intake: current Drinks per week: 8 Substance use: current Substance use type: marijuana Other substance usage details: smoked today Gender identity (if verbalized by the patient): Male Sexual Orientation (if Verbalized by the Patient): Straight or Heterosexual Spiritual care concerns: No Agree to blood products: Yes Meds Home Medications and Allergies Home Medications Medication Instructions Recorded Confirmed Type No Home Medications 09/21/19 09/21/19 History Allergies Allergy/AdvReac Type Severity Reaction Status Date / Time No Known Allergies Allergy Verified 02/02/19 19:21 Vital Signs Vital Signs - 24 hr 09/21/19 19:37 09/21/19 20:42 09/21/19 21:38 Temperature 98.2 F 98.6 F Pulse Rate 68 62 55 L Respiratory Rate 20 16 14 Blood Pressure 179/100 H 191/111 H 180/98 H Pulse Oximetry 100 98 99 09/22/19 00:00 09/22/19 04:00 09/22/19 08:00 Temperature 98.6 F 99.7 F H 98.7 F Pulse Rate 61 68 70 Respiratory Rate 16 14 20 Blood Pressure 182/97 H 164/95 H 178/101 H Pulse Oximetry 99 98 94 Exam Narrative: Exam Narrative: Luigi
[2019-09-22 12:00] VITALS: BP 182/100; PULSE 75; RESP 18; TEMP 37.2; O2SAT 98
[2019-09-22 16:28] VITALS: BP 176/106; PULSE 76; RESP 18; TEMP 36.9; O2SAT 98
[2019-09-22] MEDS: hydrALAZINE HCL 20 MG/ML VIAL 10 MG IV PUSH (16:31)
[2019-09-23] VITALS: BP 160/95; PULSE 65; RESP 14; TEMP 37.9; O2SAT 98
[2019-09-23 03:51] VITALS: BP 160/95; PULSE 84; RESP 14; TEMP 37.4; O2SAT 98
[2019-09-23 05:47] LABS: Hematocrit 43.8 % (40.0-54.0); Hemoglobin 15.5 g/dL (14.0-18.0); Mean Corpuscular HGB Conc 35.4 g/dL (32.0-36.0); Mean Corpuscular Volume 93.2 fL (78.0-102.0); Mean Platelet Volume 10.7 fl (8.7-11.0); Platelet Count Result 173 K/mm3 (150-420); Red Cell Distribution Width 12.9 % (11.6-14.4); White Blood Count 10.9 K/mm3 (4.8-10.8)
[2019-09-23 06:11] LABS: Alanine Aminotransferase 33 U/L (16-63); Albumin Level 3.4 g/dL (3.4-5.0); Alkaline Phosphatase 118 U/L (46-116); Anion Gap 15.4 mmol/L (7-16); Aspartate Amino Transferase 19 U/L (15-37); Bilirubin,Total 0.7 mg/dL (0.00-1.00); Blood Urea Nitrogen 9 mg/dL (7-18); Calcium 8.6 mg/dL (8.5-10.1); Carbon Dioxide 26 mmol/L (21-32); Chloride 96 mmol/L (98-108); Estimated CRCL calculation 172 ml/min; Estimated Glomerular Filt Rate > 60; Glucose 87 mg/dL (70-99); Lipase 297 U/L (73-393); Osmolality Calculated 275 mOsm/kg (285-295); Potassium 3.4 mmol/L (3.5-5.1); Sodium 134 mmol/L (136-145)
[2019-09-23 07:35] VITALS: BP 155/85; PULSE 87; RESP 16; TEMP 37.4; O2SAT 96
[2019-09-23] MEDS: PANTOPRAZOLE SODIUM IV 40 MG VIAL IV PUSH (08:21)
[2019-09-23] MEDS: VERAPAMIL HCL ER 120 MG TABLET PO (08:22)
[2019-09-23] MEDS: hydrALAZINE HCL 20 MG/ML VIAL 10 MG IV PUSH (08:22)
[2019-09-23] MEDS: ONDANSETRON INJ 4 MG/2 ML VIAL IV PUSH (08:22)
--- NOTE | 2019-09-23 10:20 | PC.NURSE ---
Patient resting quietly in bed, denies any needs. Call light and belongings within reach.
--- NOTE | 2019-09-23 11:11 | PM.DS ---
DS: Admitting Diagnosis Admitting Diagnosis Admitting Diagnosis: Acute pancreatitis without necrosis or infection, unspecified DS: Discharge Diagnosis Discharge Diagnosis (1) Pancreatitis: Code(s): K85.90 - Acute pancreatitis without necrosis or infection, unspecified Status: Acute Assessment and Plan: patient with history of pancreatitis acute on chronic pancreatitis alcohol-induced pancreatitis patient able to tolerate diet lipase 1827 on admission currently to 297 CT from January of 2019 showed a mass at the tail of his pancreas as well as a sclerotic lesion on his L3. patient has not follow-up with any provider due to lack of insurance (2) Acute dehydration: Code(s): E86.0 - Dehydration Status: Acute Assessment and Plan: resolved patient educated on proper hydration (3) GERD (gastroesophageal reflux disease): Code(s): K21.9 - Gastro-esophageal reflux disease without esophagitis Status: Acute Assessment and Plan: continue Protonix (4) Hypertension: Code(s): I10 - Essential (primary) hypertension Status: Acute Assessment and Plan: blood pressure 160/95 patient discharge with verapril 120 mg p.o. daily patient will follow with primary care physician since he has insurance (5) Alcoholism: Code(s): F10.20 - Alcohol dependence, uncomplicated Status: Acute Assessment and Plan: patient educated on cessation information given to patient for counseling for his addiction patient discharged with folic acid and thiamine DS: Summary Hospital Course Hospital Course: patient was admitted on 09/21/2019 diagnosed with pancreatitis. Patient has a history pancreatitis due to alcohol use. On admission patient's lipase was 1827 today it is 297 patient denies any abdominal pain or tenderness or nausea /vomiting and was able to tolerate his meals this day. Patient noted that he currently has insurance and will follow-up with a primary care physician and seek counseling his alcohol abuse. Patient able to tolerate all meals , slept well and ambulate at baseline. Patient denies SOB, CP, palpitation, extremity numbness, lightheadness, dizziness, constipation, diarrhea, chills or fever. Patient agree that they are ready for discharge and discharge plan. Time Spent with Patient Time attestation: Total time spent providing and/or coordinating discharge services: Exam Narrative: Exam Narrative: General: A well-developed, well-nourished male HEENT: Normocephalic, atraumatic. PERRL, EOMI. Sclerae anicteric. Oral mucosa moist. Oropharynx clear. Neck: Supple. Respiratory: Lungs are clear to auscultation bilaterally. Cardiovascular: Regular rate and rhythm with S1-S2. Gastrointestinal: Abdomen is soft, tender with palpation to the right upper quadrant, and nondistended with positive bowel sounds. No organomegaly. Skin: Warm, dry, and slightly pale.. No rash or lesions on limited exam. Extremities: No cyanosis, clubbing, or edema. Radial and pedal pulses intact. Neurological: Alert. Cranial nerves 2-12 are grossly intact. No gross focal deficits to casual conversation. Psychiatric: Pleasant and cooperative with normal mood and affect. Judgment and insight intact. CONSTITUTIONAL :No weight loss, fever, chills, weakness or fatigue.: HEENT: Eyes: No diplopia or blurred vision. ENT: No earache, sore throat or runny nose. CARDIOVASCULAR: No pressure, squeezing, strangling, tightness, heaviness or aching about the chest, neck, axilla or epigastrium. RESPIRATORY: No cough, shortness of breath, PND or orthopnea. GASTROINTESTINAL: No nausea, vomiting or diarrhea. GENITOURINARY: No dysuria, frequency or urgency. MUSCULOSKELETAL: No muscle, back pain, joint pain or stiffness. SKIN: No change in skin, hair or nails. NEUROLOGIC: No paresthesias, fasciculations, seizures or weakness. PSYCHIATRIC: No disorder o
--- NOTE | 2019-09-23 11:30 | PC.NURSE ---
Patient aware he is to be discharged. Resting in bed. Call light at side. Reports no need for pain medication at this time.
[2019-09-23] MEDS: POTASSIUM CHLORIDE 20 MEQ PACKET (FOR LIQUID) 40 MEQ PO (12:37)
--- NOTE | 2019-09-23 13:45 | PC.NURSE ---
All discharge instructions and education reviewed with patient. Patient reports understanding. All belongings gathered and sent home with patient. Patient denies any questions or concerns at discharge. Patient left ambulatory.
== END 2019-09-23 13:45 | disposition home or self-care (01) | DRG 282 ==
LOC: CHSED 19:27 → CHS2ND 20:32
PROVIDERS: Nurse Practitioner; Admitting Provider Family Medicine; Emergency Provider Family Medicine; PCP Internal Medicine; Visit Provider Family Medicine
DX: K85.90 Acute pancreatitis without necrosis or infection, unspecified (principal); E86.0 Dehydration; K21.9 Gastro-esophageal reflux disease without esophagitis; F10.20 Alcohol dependence, uncomplicated; I10 Essential (primary) hypertension; F10.10 Alcohol abuse, uncomplicated; F17.210 Nicotine dependence, cigarettes, uncomplicated
CPT/HCPCS: 36415; 80053; 81001; 83605; 83690; 84484; 85025; 85027; 85610; 93005; 96361; 96374; 99283; 99285; A9270; C9113; J0360; J1170; J1650; J2405; J7120

== ENCOUNTER 2020-01-24 23:18 | Observation (INO) | payer OTHER, SELFPAY ==
--- NOTE | ~2020-01-24 | CT_ITS ---
EXAMINATION: CT abdomen pelvis w con INDICATION: Abdominal pain TECHNIQUE: Computed tomographic images of the abdomen and pelvis were obtained after the administrati on of 100 cc of Omnipaque 350 intravenous contrast. The dose-length product (DLP) was 446.88 mGy-cm. Automated exposure control and iterative reconstruction technique were employed. COMPARISON: 07/27/2019 FINDINGS: Minimal dependent atelectasis is present in the lung bases. The heart size is normal. The l iver, spleen, gallbladder, and adrenal glands are normal. 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 The kidneys are unremarkable. There is no free intraperitoneal gas or evidence of bowel obstructio n. No pathologically enlarged abdominal or pelvic lymph nodes are identified. The appendix is normal. IMPRESSION: 1. No CT correlate for the patient's symptoms. Reviewed, dictated and finalized at location A.
[2020-01-24 23:30] VITALS: BP 155/87; PULSE 83; RESP 20; TEMP 37.1; O2SAT 96
--- NOTE | 2020-01-24 23:35 | ED.ABDPAIN ---
HPI - Abdominal Pain General Chief Complaint: Abdominal Pain Stated Complaint: Abdominal Pain Time Seen by Provider: 01/24/20 23:35 Source: patient Mode of arrival: ambulatory Limitations: no limitations History of Present Illness HPI narrative: 29-year-old man with a history of alcoholic pancreatitis comes in today complaining of 2 days of severe epigastric pain, nausea and vomiting that started after he began drinking again. Patient states that he had conflict with his significant other and began drinking several days ago. Today he has been unable to keep down any fluids. he denies fever, black stools, bloody stools, blood in his vomitus, shortness of breath, chest pain, cough, sore throat, or dysuria. He states that he has been alcohol free for several months and has been exercising regularly and working regularly. MD elicited complaint: abdominal pain Onset (ago): day(s) (2) Pain Consistency: constant Location: epigastric Severity: severe Quality: sharp Radiation: none Migration to: no migration Exacerbating factors: nothing Relieving factors: nothing Context: confirms history of similar episodes Associated symptoms: nausea, vomiting and anorexia Related Data Home Medications Medication Instructions Recorded Confirmed No Home Medications 01/24/20 01/24/20 Allergies Allergy/AdvReac Type Severity Reaction Status Date / Time No Known Allergies Allergy Verified 02/02/19 19:21 Review of Systems Constitutional: Constitutional: Denies chills, Denies fever(s) and Denies weakness Eyes: Eyes: Denies change in vision and Denies photophobia ENT: Denies dysphagia, Denies nasal congestion and Denies sore throat Cardiovascular: Cardiovascular: Denies chest pain and Denies radiating jaw, neck or arm pain Respiratory: Respiratory: Denies cough and Denies dyspnea Gastrointestinal: Gastrointestinal: Reports as per HPI Genitourinary: Genitourinary: Denies hematuria, Denies dysuria and Denies urinary frequency Musculoskeletal: Musculoskeletal: Denies back pain, Denies arthralgias and Denies joint swelling Integumentary/Breasts: Skin/Breast: Denies pruritus, Denies erythema and Denies rash Neurologic: Denies vertigo, Denies dizziness and Denies syncope Endocrine: Endocrine: Denies polydipsia and Denies polyuria Hematologic/Lymphatic: Hematologic/Lymphatic: Denies easy bleeding and Denies easy bruising Allergic/Immunologic: Allergic/Immunologic: Denies lip swelling and Denies tongue swelling PMFSH Past Medical History Medical History (Updated 01/25/20 @ 01:25 by Horacio Lazcano MD) Alcoholism GERD (gastroesophageal reflux disease) Hypertension Pancreatitis Social History Social History Smoking packs per day: 1 Smoking cigarettes per day: 20.0 Years smoked: 12 Smoking pack-years: 12.00 Smoking status: Heavy tobacco smoker Tobacco type: cigarettes Second hand tobacco smoke exposure: Yes Alcohol intake: current Drinks per week: 8 Substance use: current Substance use type: marijuana Other substance usage details: smoked today Gender identity (if verbalized by the patient): Male Spiritual care concerns: No Agree to blood products: Yes Exam Const: General: healthy appearing and alert Nutritional Appearance: well nourished Other: moderate to severe acute distress HENMT: Ears: external ears normal, TM's normal bilaterally and EAC's normal Mouth: Yes moist mucous membranes Throat: posterior oropharynx normal Eyes: Conjunctivae: conjunctivae normal Pupils: Equal, round and reactive pupils present EOM: EOMs intact bilaterally Resp: Effort & Inspection: normal respiratory effort and not labored Auscultation: clear to auscultation bilaterally, no rales, no rhonchi and no wheezes Cardio: Rate: regular rate Rhythm: regular rhythm Heart sounds: no murmurs GI: GI Palp: Yes Soft to palpation, Yes Tenderness to p
[2020-01-24] MEDS: ONDANSETRON INJ 4 MG/2 ML VIAL IV PUSH (23:51)
[2020-01-24] MEDS: SODIUM CHLORIDE 0.9% IV 1,000 ML 999 ML IV CONT (23:51)
[2020-01-24] MEDS: HYDROmorphone HCL INJ (*CRX) 2 MG/ML VIAL 0.5 MG IV PUSH (23:51)
[2020-01-24 23:58] LABS: Basophils Absolute Auto 0.07 K/mm3 (0.00-0.10); Basophils Percent Auto 0.8 % (0.0-1.0); Eosinophils Absolute Auto 0.29 K/mm3 (0.02-0.50); Eosinophils Percent Auto 3.5 % (1.0-6.0); Hematocrit 45.3 % (40.0-54.0); Hemoglobin 15.5 g/dL (14.0-18.0); Immature Granulocyte Absolute 0.02 K/mm3 (0.00-0.00); Immature Granulocyte Percent A 0.2 % (0.0-0.0); Lymphocytes Absolute Auto 2.27 K/mm3 (1.10-4.50); Lymphocytes Percent Auto 27.2 % (18.0-42.0); Mean Corpuscular HGB Conc 34.2 g/dL (32.0-36.0); Mean Corpuscular Hemoglobin 33.3 pg (27.0-31.0); Mean Corpuscular Volume 97.2 fL (78.0-102.0); Mean Platelet Volume 9.7 fl (8.7-11.0); Monocytes Absolute Auto 0.51 K/mm3 (0.10-0.90); Monocytes Percent Auto 6.1 % (2.0-11.0); Neutrophils Absolute Auto 5.2 K/mm3 (1.7-7.2); Neutrophils Percent Auto 62.2 % (50.0-70.0); Platelet Count Result 275 K/mm3 (150-420); Red Blood Count 4.66 M/mm3 (4.70-6.10); Red Cell Distribution Width 14.4 % (11.6-14.4); White Blood Count 8.4 K/mm3 (4.8-10.8)
[2020-01-24 23:59] LABS: Add Urine Microscopic? NO; Appearance Urine Clear (Clear); Bilirubin Urine Negative (Negative); Blood Urine Negative (Negative); Color Urine Yellow (Yellow); Glucose Urine UA Negative (Negative); Ketones Urine Negative (Negative); Leukocyte Esterase Ur Negative LEU/UL (Negative); Nitrate Urine Negative (Negative); Protein Urine Negative (Negative); Urobilinogen Urine 0.2 mg/dL (0.2-1.0)
[2020-01-25 00:15] LABS: Alanine Aminotransferase 55 U/L (16-63); Albumin Level 3.8 g/dL (3.4-5.0); Alkaline Phosphatase 112 U/L (46-116); Anion Gap 12 mmol/L (8-16); Aspartate Amino Transferase 41 U/L (15-37); Bilirubin,Total 0.3 mg/dL (0.00-1.00); Blood Urea Nitrogen 14 mg/dL (7-18); Calcium 7.8 mg/dL (8.5-10.1); Carbon Dioxide 25 mmol/L (21-32); Chloride 106 mmol/L (98-108); Estimated CRCL calculation 157 ml/min; Estimated Glomerular Filt Rate > 60; Glucose 102 mg/dL (70-99); Lipase 32 U/L (73-393); Osmolality Calculated 296 mOsm/kg (285-295); Potassium 3.3 mmol/L (3.5-5.1); Sodium 143 mmol/L (136-145); Total Protein 7.4 g/dL (6.4-8.2)
[2020-01-25 00:20] LABS: Lactic Acid Reflex 1.4 mmol/L (0.4-2.0)
[2020-01-25 00:21] LABS: Partial Thromboplastin Time 27.1 SEC (22.3-31.6); Prothrombin Time 10.8 Seconds (9.64-11.0)
[2020-01-25 00:23] VITALS: BP 135/78; PULSE 77; RESP 18; O2SAT 99
[2020-01-25] MEDS: SODIUM CHLORIDE 0.9% IV 1,000 ML 999 ML IV CONT (00:28)
[2020-01-25 01:55] VITALS: BP 125/71; PULSE 75; RESP 18; TEMP 36.6; O2SAT 96
--- NOTE | 2020-01-25 02:20 | PC.NURSE ---
30 Yr old male to room for services of the hospitalist as telemetry obs for pain control. Pt history of alcoholism & pancreatitis. Has had abd pain for over 24 hrs & nausea.
[2020-01-25 02:23] VITALS: BMI 23.8
[2020-01-25] MEDS: SODIUM CHLORIDE 0.9% IV 1,000 ML 200 ML IV CONT (02:24)
[2020-01-25] MEDS: KCL 20 MEQ/SW 100 ML 100 ML 50 MEQ IVPB (02:24)
[2020-01-25 02:36] VITALS: BP 129/75; PULSE 69; RESP 16; TEMP 36.4; O2SAT 96
[2020-01-25] MEDS: HYDROmorphone HCL INJ (*CRX) 2 MG/ML VIAL 0.5 MG IV PUSH ×3 (03:02→09:05)
[2020-01-25 04:00] VITALS: PULSE 82
[2020-01-25 05:51] LABS: Basophils Absolute Auto 0.05 K/mm3 (0.00-0.10); Basophils Percent Auto 0.7 % (0.0-1.0); Eosinophils Absolute Auto 0.41 K/mm3 (0.02-0.50); Eosinophils Percent Auto 5.7 % (1.0-6.0); Hematocrit 43.1 % (40.0-54.0); Hemoglobin 14.7 g/dL (14.0-18.0); Immature Granulocyte Absolute 0.02 K/mm3 (0.00-0.00); Immature Granulocyte Percent A 0.3 % (0.0-0.0); Lymphocytes Absolute Auto 2.86 K/mm3 (1.10-4.50); Lymphocytes Percent Auto 39.6 % (18.0-42.0); Mean Corpuscular HGB Conc 34.1 g/dL (32.0-36.0); Mean Corpuscular Hemoglobin 33.6 pg (27.0-31.0); Mean Corpuscular Volume 98.4 fL (78.0-102.0); Mean Platelet Volume 9.9 fl (8.7-11.0); Monocytes Absolute Auto 0.49 K/mm3 (0.10-0.90); Monocytes Percent Auto 6.8 % (2.0-11.0); Neutrophils Absolute Auto 3.4 K/mm3 (1.7-7.2); Neutrophils Percent Auto 46.9 % (50.0-70.0); Platelet Count Result 243 K/mm3 (150-420); Red Blood Count 4.38 M/mm3 (4.70-6.10); Red Cell Distribution Width 14.5 % (11.6-14.4); White Blood Count 7.2 K/mm3 (4.8-10.8)
[2020-01-25 06:12] LABS: Alanine Aminotransferase 51 U/L (16-63); Albumin Level 3.1 g/dL (3.4-5.0); Alkaline Phosphatase 95 U/L (46-116); Anion Gap 14 mmol/L (8-16); Aspartate Amino Transferase 31 U/L (15-37); Bilirubin,Total 0.2 mg/dL (0.00-1.00); Blood Urea Nitrogen 10 mg/dL (7-18); Calcium 7.3 mg/dL (8.5-10.1); Carbon Dioxide 21 mmol/L (21-32); Chloride 109 mmol/L (98-108); Estimated CRCL calculation 178 ml/min; Estimated Glomerular Filt Rate > 60; Glucose 83 mg/dL (70-99); Lipase 32 U/L (73-393); Osmolality Calculated 296 mOsm/kg (285-295); Potassium 3.7 mmol/L (3.5-5.1); Sodium 144 mmol/L (136-145)
[2020-01-25] MEDS: ONDANSETRON INJ 4 MG/2 ML VIAL IV PUSH (06:12)
[2020-01-25 08:00] VITALS: BP 139/86; PULSE 68; RESP 20; TEMP 36.2; O2SAT 98
[2020-01-25] MEDS: ENOXAPARIN 40 MG/0.4 ML SYRINGE SUB-Q (09:07)
[2020-01-25] MEDS: SODIUM CHLORIDE 0.9% IV 1,000 ML 100 ML IV CONT (10:15)
[2020-01-25 10:21] LABS: Amphetamine Screen Urine Negative (Negative); Barbiturate Screen Urine Negative (Negative); Benzodiazepines Screen Urine Negative (Negative); Cannabinoid Screen Urine Positive (Negative); Cocaine Screen Urine Negative (Negative); Methadone Screen Urine Negative (Negative); Opiate Screen Urine Negative (Negative); Phencyclidine Screen Urine Negative (Negative)
[2020-01-25 12:00] VITALS: BP 150/82; PULSE 74; PULSE 84; RESP 18; TEMP 36.6; O2SAT 98
--- NOTE | 2020-01-25 12:57 | PM.SD ---
Same Day Admit/Disch: HPI History of Present Illness Chief complaint: Abdominal Pain Narrative: James Crow is a 29 year old male presents with left side pain from lower left quadrant to left pectoral area that started 2 days ago after he began drinking alcohol because he had an argument with his girlfriend earlier. Patient states that he had vomited twice. Denies any blood in his vomit or stool. Patient denies chest pain difficulty breathing no changes in urine or bowel pattern. Patient also denies fevers, chills, muscle aches, body aches. [facility] Past Medical History Medical History (Updated 01/25/20 @ 13:06 by JAYDE Krishna) Alcoholism GERD (gastroesophageal reflux disease) Hypertension Pancreatitis Social History Social History Smoking packs per day: 1 Smoking cigarettes per day: 20.0 Years smoked: 12 Smoking pack-years: 12.00 Smoking status: Current every day smoker Tobacco type: cigarettes Second hand tobacco smoke exposure: Yes Alcohol intake: current Drinks per week: 8 Substance use: current Substance use type: marijuana Other substance usage details: smoked today Gender identity (if verbalized by the patient): Male Spiritual care concerns: No Agree to blood products: Yes Same Day Admit/Disch: Med Pre-admit Medications Home Medications Medication Instructions Recorded Confirmed Type No Home Medications 01/24/20 01/24/20 History Exam Const: General: cooperative, no acute distress, alert, awake and Physically active Nutritional Appearance: average body habitus Chest: Chest/axillae images: 1. area of pain on the chest. this morning pain was a 7 on . now at 1:00 p.m. pain is nearly gone per the patient Resp: Effort & Inspection: normal respiratory effort Auscultation: clear to auscultation bilaterally Cardio: Jugular venous distension: no JVD Rate: regular rate Rhythm: regular rhythm Heart sounds: S1 normal heart sound present and S2 normal heart sound present GI: Abdomen image: 1. area of pain, no bruising, body is symmetrical, no signs of trauma, this morning was painful to palpation 10/03, this afternoon patient says pain is almost gone Neuro: General: oriented to person, oriented to place and oriented to time (and events) Cranial nerves: Yes CN's II-XII intact bilaterally (grossly intact) Cognition (Neuro): normal cognition Speech: normal speech Extrem: General: full ROM and no pedal edema Right upper extremity: full ROM Left upper extremity: full ROM Right lower extremity: full ROM Left lower extremity: full ROM Psych: Appearance: grossly normal Mental Status: mental status grossly normal Speech and movement: Normal speech and movement present Affect: normal affect Attitude: cooperative DS: Data Data Completed and Pending Labs on day of discharge: Labs from last 24 hours 01/25/20 01/25/20 01/25/20 07:58 05:36 05:36 WBC 7.2 RBC 4.38 L Hgb 14.7 Hct 43.1 MCV 98.4 MCH 33.6 H MCHC 34.1 RDW 14.5 H Plt Count 243 MPV 9.9 Immature Gran % (Auto) 0.3 H Neut % (Auto) 46.9 L Lymph % (Auto) 39.6 [place] % (Auto) 6.8 Eos % (Auto) 5.7 Baso % (Auto) 0.7 Lymph # (Auto) 2.86 [place] # (Auto) 0.49 Eos # (Auto) 0.41 Baso # (Auto) 0.05 Abs Immat Gran (auto) 0.02 H Absolute Neuts (auto) 3.4 Absolute Nucleated RBC 0.00 Nucleated RBC % 0.0 PT INR APTT Sodium 144 Potassium 3.7 Chloride 109 H Carbon Dioxide 21 Anion Gap 14 BUN 10 Creatinine 0.61 L Estim Creat Clear Calc 178 Estimated GFR > 60 Glucose 83 Calculated Osmolality 296 H Lactic Acid Calcium 7.3 L Total Bilirubin 0.2 AST 31 ALT 51 Alkaline Phosphatase 95 Total Protein 6.0 L Albumin 3.1 L Lipase 32 L Urine Color Urine Appearance Urine pH Ur Specific [place] Urine
--- NOTE | 2020-01-29 13:40 | PC.NURSE ---
Unable to contact for discharge call back.
== END 2020-01-25 14:10 | disposition home or self-care (01) ==
LOC: CHSED 01-25 00:34 → CHS2ND 01-25 13:10
PROVIDERS: Nurse Practitioner Family; Admitting Provider Emergency Medicine; Emergency Provider Emergency Medicine; PCP Internal Medicine; Visit Provider Emergency Medicine
DX: R10.13 Epigastric pain (principal); R07.9 Chest pain, unspecified; R11.10 Vomiting, unspecified; I10 Essential (primary) hypertension; E87.6 Hypokalemia; F10.20 Alcohol dependence, uncomplicated; K21.9 Gastro-esophageal reflux disease without esophagitis; F17.210 Nicotine dependence, cigarettes, uncomplicated; F12.90 Cannabis use, unspecified, uncomplicated
CPT/HCPCS: 36415; 74177; 80053; 80307; 81003; 83605; 83690; 85025; 85610; 85730; 96361; 96365; 96366; 96374; 96375; 96376; 99284; 99285; G0378; G0379; J1170; J1650; J2405; J3480; J7030; Q9965

== ENCOUNTER 2020-02-01 07:44 | Observation (INO) | payer OTHER, SELFPAY ==
--- NOTE | ~2020-02-01 | CT_ITS ---
EXAMINATION: CT abdomen pelvis w con INDICATION: Left-sided abdominal pain TECHNIQUE: Computed tomographic images of the abdomen and pelvis were obtained after the administrati on of 100 cc of Omnipaque 350 intravenous contrast. The dose-length product (DLP) was 441.59 mGy-cm. Automated exposure control and iterative reconstruction technique were employed. COMPARISON: 01/25/2020, 10/12/2017 FINDINGS: The heart size is normal. Stable chronic small nodules of the visualized lung bases are con sistent with old granulomatous disease. There is mild atelectasis. The liver, spleen, gallbladder, an d adrenal glands are normal. 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 The kidneys are unremarkable. The appendix is normal. No pathologically enlarged abdominal or pelvic lymp h nodes are identified. There is no free intraperitoneal gas or evidence of bowel obstruction. Mild c ircumferential thickening of the bladder wall is noted. IMPRESSION: 1. Mild bladder wall thickening which could reflect incomplete distention or possibly cystitis. Reviewed, dictated and finalized at location A. SORTER IMPRESSION: 1. Mild bladder wall thickening which could reflect incomplete distention or po ssibly cystitis.
[2020-02-01 07:54] VITALS: BP 140/70; PULSE 86; RESP 16; TEMP 37; O2SAT 96
--- NOTE | 2020-02-01 08:08 | ECG_ITS ---
Measurements Intervals Gail Rate: 67 P: 40 WI: 143 QRS: 63 QRSD: 90 T: 57 QT: 404 QTc: 427 Interpretive Statements SINUS RHYTHM DELAYED PRECORDIAL R/S TRANSITION BORDERLINE ECG Electronically Signed On 02-02-2020 18:06:22 [employer] by Aroldo Hughes D.O.
[2020-02-01 08:36] LABS: Basophils Absolute Auto 0.05 K/mm3 (0.00-0.10); Basophils Percent Auto 0.5 % (0.0-1.0); Eosinophils Absolute Auto 0.22 K/mm3 (0.02-0.50); Eosinophils Percent Auto 2.2 % (1.0-6.0); Hematocrit 49.4 % (40.0-54.0); Immature Granulocyte Absolute 0.07 K/mm3 (0.00-0.00); Immature Granulocyte Percent A 0.7 % (0.0-0.0); Lymphocytes Absolute Auto 1.41 K/mm3 (1.10-4.50); Lymphocytes Percent Auto 14.4 % (18.0-42.0); Mean Corpuscular HGB Conc 34.4 g/dL (32.0-36.0); Mean Corpuscular Hemoglobin 33.4 pg (27.0-31.0); Mean Corpuscular Volume 97.1 fL (78.0-102.0); Mean Platelet Volume 9.5 fl (8.7-11.0); Monocytes Percent Auto 4.1 % (2.0-11.0); Neutrophils Absolute Auto 7.7 K/mm3 (1.7-7.2); Neutrophils Percent Auto 78.1 % (50.0-70.0); Platelet Count Result 240 K/mm3 (150-420); Red Blood Count 5.09 M/mm3 (4.70-6.10); Red Cell Distribution Width 14.4 % (11.6-14.4); White Blood Count 9.8 K/mm3 (4.8-10.8)
[2020-02-01 08:48] LABS: Partial Thromboplastin Time 27.3 SEC (22.3-31.6); Prothrombin Time 10.7 Seconds (9.64-11.0)
[2020-02-01 08:54] LABS: Alanine Aminotransferase 65 U/L (16-63); Albumin Level 3.9 g/dL (3.4-5.0); Alkaline Phosphatase 125 U/L (46-116); Anion Gap 12 mmol/L (8-16); Aspartate Amino Transferase 71 U/L (15-37); Bilirubin,Total 0.5 mg/dL (0.00-1.00); Blood Urea Nitrogen 15 mg/dL (7-18); Calcium 8.1 mg/dL (8.5-10.1); Carbon Dioxide 25 mmol/L (21-32); Chloride 104 mmol/L (98-108); Estimated CRCL calculation 53 ml/min; Estimated Glomerular Filt Rate 48; Glucose 103 mg/dL (70-99); Lactic Acid Reflex 0.9 mmol/L (0.4-2.0); Lipase 43 U/L (73-393); Osmolality Calculated 292 mOsm/kg (285-295); Potassium 3.5 mmol/L (3.5-5.1); Sodium 141 mmol/L (136-145); Total Protein 7.4 g/dL (6.4-8.2)
[2020-02-01 08:56] LABS: Troponin I < 0.02 ng/mL (0.00-0.056)
[2020-02-01 09:07] LABS: Add Urine Microscopic? YES; Appearance Urine Clear (Clear); Bilirubin Urine 1+ (Negative); Blood Urine Negative (Negative); Color Urine Yellow (Yellow); Glucose Urine UA Negative (Negative); Ketones Urine 2+ (Negative); Leukocyte Esterase Ur Negative (Negative); Nitrate Urine Negative (Negative); Protein Urine Trace (Negative); Specific Grav Ur 1.025 (1.010-1.020); pH Urine 5.5 (5.0-8.0)
[2020-02-01 09:12] LABS: Bacteria Urine 1+ /hpf; Mucus Urine Few /lpf; RBC Urine 0-2 /hpf (0-2); Squamous Epithelial Cell Urine None seen /hpf (Few); WBC Urine 0-3 /hpf (0-3)
[2020-02-01 09:27] LABS: Ethanol < 3 mg/dL (0-6)
--- NOTE | 2020-02-01 09:46 | ED.ABDPAIN ---
HPI - Abdominal Pain General Chief Complaint: Abdominal Pain Stated Complaint: ambulance Source: patient Mode of arrival: EMS Limitations: no limitations History of Present Illness HPI narrative: this is a 29-year-old gentleman unfortunate individual with some history of alcoholism and chronic pancreatitis is brought in by EMS with some left upper quadrant pain and discomfort with nausea vomiting was brought in by EMS because of the nausea and vomiting receive Zofran in the route to the ER via EMS currently is complaining of some mild right upper quadrant pain with history of chronic pancreatitis and patient is currently homeless [place]. Denies any other symptoms is a chronic alcohol abuser but has not had a drink over the last 24 hours. Denies any shortness of breath no cough no fever or chills. MD elicited complaint: abdominal pain Onset (ago): hour(s) Pain Consistency: intermittent Location: LUQ and RUQ Severity: mild Quality: aching Radiation: none Exacerbating factors: nothing Relieving factors: vomiting Associated symptoms: nausea and vomiting Related Data Home Medications Medication Instructions Recorded Confirmed No Home Medications 01/24/20 02/01/20 Allergies Allergy/AdvReac Type Severity Reaction Status Date / Time No Known Allergies Allergy Verified 02/02/19 19:21 Review of Systems Review of Systems: All systems reviewed & are unremarkable except as noted in HPI and below PMFSH Past Medical History Medical History (Updated 02/01/20 @ 09:51 by Arsenio Samano MD) Alcoholism GERD (gastroesophageal reflux disease) Hypertension Pancreatitis Social History Social History Smoking packs per day: 1 Smoking cigarettes per day: 20.0 Years smoked: 12 Smoking pack-years: 12.00 Smoking status: Current every day smoker Tobacco type: cigarettes Second hand tobacco smoke exposure: Yes Alcohol intake: current Drinks per week: 8 Substance use: current Substance use type: marijuana Other substance usage details: smoked today Gender identity (if verbalized by the patient): Male Spiritual care concerns: No Agree to blood products: Yes Exam Const: General: no acute distress and alert Orientation/consciousness: patient oriented x3 HENMT: Head: normal to inspection Eyes: Conjunctivae: conjunctivae normal Pupils: Equal, round and reactive pupils present Neck: Neck: normal visual inspection, no lymphadenopathy and no meningeal signs Resp: Effort & Inspection: normal respiratory effort Cardio: Rate: regular rate Rhythm: regular rhythm GI: GI Palp: Yes Soft to palpation Other: Tender right upper quadrant Back/Spine/Pelvis: Back: no CVA tenderness Skin: General skin exam: normal color Rashes: no rashes Neuro: General: patient oriented x3 Extrem: General: normal to inspection and no pedal edema Psych: Appearance: disheveled Mental Status: mental status grossly normal Affect: normal affect Thought content: Yes Normal thought content present Course Course Emergency Course: reassessment patient has mild right upper quadrant discomfort with nausea history of pancreatitis and chronic alcoholism reviewed labs and CT scan with the patient and will be admitting wet observation with some treatment of nausea vomiting and pancreatic abdominal pain. Vital Signs Vital signs: Vital Signs Temperature 37.0 C 02/01/20 07:54 Pulse Rate 86 02/01/20 07:54 Respiratory Rate 16 02/01/20 07:54 Blood Pressure 140/70 02/01/20 07:54 Pulse Oximetry 96 02/01/20 07:54 Temperature 37.0 C 02/01/20 07:54 Pulse Rate 86 02/01/20 07:54 Respiratory Rate 16 02/01/20 07:54 Blood Pressure 140/70 02/01/20 07:54 Pulse Oximetry 96 02/01/20 07:54 MDM - Abdominal Pain Lab Data Result diagrams: 02/01/20 08:31 02/01/20 08:31 Labs: Lab Results 02/01/20
[2020-02-01] MEDS: ONDANSETRON INJ 4 MG/2 ML VIAL IV PUSH ×2 (09:49→15:17)
[2020-02-01 09:58] VITALS: BP 138/70; PULSE 79; RESP 19; TEMP 36.6; O2SAT 96
[2020-02-01 10:08] VITALS: BP 146/85; PULSE 67; RESP 16; TEMP 36.1; O2SAT 100
--- NOTE | 2020-02-01 10:23 | PM.IMHP ---
H&P: HPI History of Present Illness Date/Time: 02/01/20 10:23 Chief complaint: ambulance Narrative: James Crow is a 29 year old male that presented to our ED today with complaints of abdominal pain. Patient has a past medical history of alcoholism, GERD, hypertension, and pancreatitis. According to patient he is homeless and does not have any money to buy any alcohol. Patient noted that he did drink 2 medium sized bottles of hand mohel's for the alcohol content in the mohel. Patient does complain of left lower quadrant abdominal pain patient lipase low. Imaging indicated possible cystitis. Patient BUN/creatinine elevated with decreased GRF. Patient does complain of the head and noted that he had nausea and vomiting before admission that has resolved. He continues to have tenderness to his left lower quadrant. The patient denies SOB, CP, palpitation, extremity numbness, lightheadedness, dizziness, constipation, diarrhea, chills, or fever. [facility] Past Medical History Medical History (Updated 02/01/20 @ 11:38 by SUSANNE Quispe) Alcoholism GERD (gastroesophageal reflux disease) Hypertension Pancreatitis Social History Social History Smoking packs per day: 1 Smoking cigarettes per day: 20.0 Years smoked: 12 Smoking pack-years: 12.00 Smoking status: Current every day smoker Tobacco type: cigarettes Second hand tobacco smoke exposure: Yes Alcohol intake: current Drinks per week: 8 Substance use: current Substance use type: marijuana Other substance usage details: smoked today Gender identity (if verbalized by the patient): Male Spiritual care concerns: No Agree to blood products: Yes Meds Home Medications and Allergies Home Medications Medication Instructions Recorded Confirmed Type No Home Medications 01/24/20 02/01/20 History Allergies Allergy/AdvReac Type Severity Reaction Status Date / Time No Known Allergies Allergy Verified 02/02/19 19:21 Vital Signs Vital Signs - 24 hr 02/01/20 07:54 02/01/20 09:58 02/01/20 10:08 Temperature 98.6 F 98 F 97.0 F L Pulse Rate 86 79 67 Respiratory Rate 16 19 16 Blood Pressure 140/70 138/70 146/85 H Pulse Oximetry 96 96 100 Exam Narrative: Exam Narrative: GENERAL: This is a well-nourished, well-developed patient, in no apparent distress. HEAD: normocephalic, atraumatic. EYES: PERRL. Sclera clear/white. Vision is grossly intact. EARS: External ears normal, auditory canals clear and without drainage, TMs normal without perforation. Hearing grossly intact. NOSE: External nose normal with no obvious nasal discharge, nares without redness, no rhinorrhea. THROAT: Mucous membranes moist, posterior pharynx clear. NECK: Neck supple, non-tender without lymphadenopathy, masses or thyromegaly. CARDIOVASCULAR: Regular rate and rhythm without murmurs, gallops, or rubs. RESPIRATORY: Clear to auscultation. Breath sounds equal bilaterally. No wheezes, rales, or rhonchi. GASTROINTESTINAL: Left lower quadrant discomfort, nondistended. Bowel sounds are active. No hepato-splenomegaly, or palpable masses. No guarding. SKIN: warm, intact with no suspicious lesions or rash, good texture and turgor. NEURO: awake, alert, and oriented to person, place and time. There were no obvious focal neurologic abnormalities. Steady gait EXTREMITIES: Normal range of motion. No edema. No calf tenderness. Negative Homans sign bilaterally. BACK: Nontender without deformity or crepitance. No flank tenderness. H&P: Results Labs Labs: Short CBC 02/01/20 Range/Units 08:31 WBC 9.8 (4.8-10.8) K/mm3 Hgb 17.0 (14.0-18.0) g/dL Hct 49.4 (40.0-54.0) % Plt Count 240 (150-420) K/mm3 BMP 02/01/20 08:31 Sodium 141 Potassium 3.5 Chloride 104 Carbon Dioxide 25 BUN 15 Creatinine 1.72 H Glucose 103 H Calcium 8.1 L Cardiac Enzymes 02/01/20 Range/Units 08:3
[2020-02-01] MEDS: SODIUM CHLORIDE 0.9% IV 1,000 ML 100 ML IV CONT ×2 (10:37→21:23)
[2020-02-01] MEDS: methylPREDNISolone SOD SUCC 125 MG VIAL IV PUSH (10:37)
[2020-02-01] MEDS: ACETAMINOPHEN 500 MG TABLET 1000 MG PO (10:38)
[2020-02-01 10:50] LABS: Amphetamine Screen Urine Negative (Negative); Barbiturate Screen Urine Negative (Negative); Benzodiazepines Screen Urine Negative (Negative); Cannabinoid Screen Urine Positive (Negative); Cocaine Screen Urine Negative (Negative); Methadone Screen Urine Negative (Negative); Opiate Screen Urine Negative (Negative); Phencyclidine Screen Urine Negative (Negative)
[2020-02-01] MEDS: LORazepam INJ (*CRX) 2 MG/ML VIAL 0.5 MG IV PUSH ×2 (15:16→21:20)
[2020-02-01 15:23] VITALS: BP 121/76; PULSE 81; RESP 20; TEMP 35.9; O2SAT 95
--- NOTE | 2020-02-01 15:29 | PC.NURSE ---
requesting anxiety med, and increase diet to full liquid for dinner, zofran given and ativan given as requested, some nausea no emesis,
--- NOTE | 2020-02-01 16:30 | PC.NURSE ---
To remain on clear liquid tonight per ER MD, pateint aware, feeling less anxious, no vomiting, up independent in bathroom as needed, gait steady
--- NOTE | 2020-02-01 18:29 | PC.NURSE ---
fluids infusing, no vomiting, independent in room, denies needs
--- NOTE | 2020-02-01 18:40 | PC.NURSE ---
MD notified that patient requested to be upgraded to full liquid diet. MD stated he would like to keep patient on clear liquids at this time.
[2020-02-01 19:43] VITALS: BP 144/90; PULSE 88; RESP 20; TEMP 36.3; O2SAT 97
[2020-02-01] MEDS: hydrALAZINE 5 MG TABLET PO (21:19)
[2020-02-01] MEDS: diphenhydrAMINE HCl INJ 50 MG/ML VIAL IV PUSH (21:19)
[2020-02-01 23:59] VITALS: BP 112/69; PULSE 66; RESP 18; TEMP 36.4; O2SAT 94
[2020-02-02 04:00] VITALS: BP 123/74; PULSE 78; RESP 16; TEMP 36.6; O2SAT 97
[2020-02-02 05:35] LABS: Basophils Absolute Auto 0.02 K/mm3 (0.00-0.10); Basophils Percent Auto 0.2 % (0.0-1.0); Eosinophils Absolute Auto 0.01 K/mm3 (0.02-0.50); Eosinophils Percent Auto 0.1 % (1.0-6.0); Hematocrit 46.1 % (40.0-54.0); Immature Granulocyte Absolute 0.03 K/mm3 (0.00-0.00); Immature Granulocyte Percent A 0.3 % (0.0-0.0); Lymphocytes Absolute Auto 1.48 K/mm3 (1.10-4.50); Lymphocytes Percent Auto 14.6 % (18.0-42.0); Mean Corpuscular HGB Conc 34.7 g/dL (32.0-36.0); Mean Corpuscular Hemoglobin 33.8 pg (27.0-31.0); Mean Corpuscular Volume 97.5 fL (78.0-102.0); Mean Platelet Volume 9.7 fl (8.7-11.0); Monocytes Absolute Auto 0.63 K/mm3 (0.10-0.90); Monocytes Percent Auto 6.2 % (2.0-11.0); Neutrophils Percent Auto 78.6 % (50.0-70.0); Platelet Count Result 262 K/mm3 (150-420); Red Blood Count 4.73 M/mm3 (4.70-6.10); Red Cell Distribution Width 14.2 % (11.6-14.4); White Blood Count 10.1 K/mm3 (4.8-10.8)
[2020-02-02 05:48] LABS: Alanine Aminotransferase 51 U/L (16-63); Albumin Level 3.5 g/dL (3.4-5.0); Alkaline Phosphatase 104 U/L (46-116); Anion Gap 13 mmol/L (8-16); Aspartate Amino Transferase 32 U/L (15-37); Bilirubin,Total 0.6 mg/dL (0.00-1.00); Blood Urea Nitrogen 14 mg/dL (7-18); Calcium 8.2 mg/dL (8.5-10.1); Carbon Dioxide 22 mmol/L (21-32); Chloride 104 mmol/L (98-108); Estimated CRCL calculation 68 ml/min; Estimated Glomerular Filt Rate > 60; Glucose 121 mg/dL (70-99); Osmolality Calculated 289 mOsm/kg (285-295); Potassium 4.1 mmol/L (3.5-5.1); Sodium 139 mmol/L (136-145); Total Protein 6.6 g/dL (6.4-8.2)
[2020-02-02 05:50] LABS: Lipase 62 U/L (73-393); Magnesium 2.2 mg/dL (1.8-2.4)
--- NOTE | 2020-02-02 07:05 | PC.NURSE ---
Woman named Tasia called to speak to someone(nurse,coremaking supervisor,doctor) about her son. States Pt. is her son and that he is threatening suicide and that its is a life threatening situation. Patient did not give password for account on admission. Nurse spoke with patient, explained the phone call, patient states Do not tell her anything, do not give her any information. Nurse explained to woman on phone that pt. did not allow nurse to give any information to her. Woman on phone became very angry, stating that we are not taking care of her son and that this nurse was being very rude to her. Nurse explained that legally she could not give her any information and the issues she stated about her son will be addressed with him. Woman very angry still stating she wants this nurses name and operating manager name. Names given. Woman states she will manager planning about issue on Monday.
--- NOTE | 2020-02-02 07:25 | PC.NURSE ---
[id number]- Spoke to patient about phone call from his mother. He identified her as Tasia. He said that she is his biological mother that lives in [place] and that she comes back every 5-6 years and tries to be his mother. He said that she will make up lies to try to advocate for him whenever she does come back around. He denies any suicidal ideation and denies speaking to his mother this a.m.
[2020-02-02 07:27] VITALS: BP 122/65; PULSE 67; RESP 15; TEMP 36.9; O2SAT 96
--- NOTE | 2020-02-02 07:40 | PM.DS ---
DS: Admitting Diagnosis Admitting Diagnosis Admitting Diagnosis: ambulance DS: Discharge Diagnosis Discharge Diagnosis (1) Vomiting: Qualifiers: Nausea presence: with nausea Vomiting Intractability: intractable Vomiting type: unspecified Qualified Code(s): R11.2 - Nausea with vomiting, unspecified Code(s): R11.10 - Vomiting, unspecified Status: Acute Assessment and Plan: Resolved able to tolerate meals Possibly secondary to disinfection poisoning (2) Left sided abdominal pain: Code(s): R10.9 - Unspecified abdominal pain Status: Acute Assessment and Plan: Possibly secondary to household disinfecting poisoning CT of the abdomen indicates Mild bladder wall thickening which could reflect incomplete distention or possibly cystitis. (3) GERD (gastroesophageal reflux disease): Code(s): K21.9 - Gastro-esophageal reflux disease without esophagitis Status: Acute Assessment and Plan: Started Protonix (4) Hypertension: Code(s): I10 - Essential (primary) hypertension Status: Acute Assessment and Plan: Patient is noncompliant with medication possibly due to no insurance (5) Alcoholism: Code(s): F10.20 - Alcohol dependence, uncomplicated Status: Acute Assessment and Plan: Added Ativan for withdrawal symptoms Educated on cessation (6) Elevated liver enzymes: Code(s): R74.8 - Abnormal levels of other serum enzymes Status: Acute Assessment and Plan: Possibly secondary to alcohol abuse (7) Acute kidney failure: Code(s): N17.9 - Acute kidney failure, unspecified Status: Acute Assessment and Plan: Possibly secondary dehydration caused by nausea and vomiting Creatinine at 1.35 baseline 0.70, improved (8) Poisoning: Status: Acute Assessment and Plan: Patient 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 to drinking 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 Patient 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 for cannabis (9) Cystitis: Code(s): N30.90 - Cystitis, unspecified without hematuria Status: Acute Assessment and Plan: CT indicate possible cystitis patient does not have any signs or symptoms such as urgency/frequency/incontinence/dysuria Gave 1 dose of steroids (10) Dehydration: Code(s): E86.0 - Dehydration Status: Acute Assessment and Plan: Resolved Possibly secondary to nausea and vomiting DS: Summary Time Spent with Patient Time attestation: Total time spent providing and/or coordinating discharge services: Exam Narrative: Exam Narrative: GENERAL: This is a well-nourished, well-developed patient, in no apparent distress. HEAD: normocephalic, atraumatic. EYES: PERRL. Sclera clear/white. Vision is grossly intact. EARS: External ears normal, auditory canals clear and without drainage, TMs normal without perforation. Hearing grossly intact. NOSE: External nose normal with no obvious nasal discharge, nares without redness, no rhinorrhea. THROAT: Mucous membranes moist, posterior pharynx clear. NECK: Neck supple, non-tender without lymphadenopathy, masses or thyromegaly. CARDIOVASCULAR: Regular rate and rhythm without murmurs, gallops, or rubs. RESPIRATORY: Clear to auscultation. Breath sounds equal bilaterally. No wheezes, rales, or rhonchi. GASTROINTESTINAL: Left lower quadrant discomfort, nondistended. Bowel sounds are active. No hepato-splenomegaly, or palpable masses. No guarding. SKIN: warm, intact with no suspicious lesions or rash, good texture and turgor. NEURO: awake, alert, and oriented to person, place and time. There were no obvious focal neurologic abnormalities. Steady gait EXTREMITIES: Normal range of motion. No edema. No calf tenderness. Negative Homans sign bilaterally. BACK: Nontender without deformity or crepitance. No flank tenderness. DS: Data Data Completed and Pending Labs on day of discharge: Labs from last 24 hours 02/02/20 02/02/20 02/02/20 05:20 05:20 05:
[2020-02-02] MEDS: PANTOPRAZOLE SOD SESQUIHYDRATE 20 MG TAB PO (08:20)
[2020-02-02] MEDS: ONDANSETRON HCL ODT 4 MG TABLET PO (09:36)
== END 2020-02-02 10:35 | disposition home or self-care (01) ==
LOC: CHSED 07:46 → CHS2ND 09:51
PROVIDERS: Nurse Practitioner; Admitting Provider Emergency Medicine; Emergency Provider Emergency Medicine; PCP Internal Medicine; Visit Provider Emergency Medicine
DX: R11.2 Nausea with vomiting, unspecified (principal); R10.12 Left upper quadrant pain; R10.11 Right upper quadrant pain; R10.32 Left lower quadrant pain; T49.0X1A Poisoning by local antifungal, anti-infective and anti-inflammatory drugs, accidental (unintentional), initial encounter; E86.0 Dehydration; N17.9 Acute kidney failure, unspecified; N30.90 Cystitis, unspecified without hematuria; F10.20 Alcohol dependence, uncomplicated; R74.8 Abnormal levels of other serum enzymes; I10 Essential (primary) hypertension; K21.9 Gastro-esophageal reflux disease without esophagitis; F17.210 Nicotine dependence, cigarettes, uncomplicated
CPT/HCPCS: 36415; 74177; 80053; 80307; 81001; 83605; 83690; 83735; 84484; 85025; 85610; 85730; 93005; 96361; 96374; 96375; 96376; 99285; A9270; G0378; G0379; J1200; J2060; J2405; J2930; J7030; Q9965

== ENCOUNTER 2020-04-19 12:46 | Emergency (ER) | payer OTHER, SELFPAY ==
--- NOTE | ~2020-04-19 | XR_ITS ---
EXAMINATION: XR ankle RT min 3V INDICATION: Right ankle pain, initial encounter TECHNIQUE: Two views of the right ankle are obtained. 03/19/2012 COMPARISON: None available FINDINGS: There is a subtle linear heterotopic ossification distal to the lateral malleolus. Bone ali gnment is normal. Mild ankle soft tissue swelling is noted. IMPRESSION: 1. Possible avulsion fracture of the lateral malleolus. Reviewed, dictated and finalized at location A. DEVELOPMENT MANAGER
[2020-04-19 12:59] VITALS: BP 163/103; PULSE 99; RESP 20; TEMP 36.1; O2SAT 99
--- NOTE | 2020-04-19 13:02 | ED.LOWEXIN ---
HPI - Extremity Injury (Lower) General Chief Complaint: Extremity Injury, Lower Stated Complaint: right ankle pain Time Seen by Provider: 04/19/20 13:02 Source: patient Mode of arrival: wheelchair Limitations: no limitations History of Present Illness HPI Narrative: 29-year-old man comes in today complaining of right ankle pain that started this morning after he slipped outdoors. Patient states that he has been able to bear weight on his right ankle and foot since. He denies any numbness or tingling. He denies prior right ankle fractures and denies any other injuries. complaint: ankle injury Onset (ago): hour(s) (1) Injury: Right: ankle Type of Injury: unknown Place: street/outdoors Severity: severe Relieving factors: rest Exacerbating factors: weight bearing, movement and palpation Context: fall and walking Associated symptoms: swelling and unable to bear weight Other symptoms: none Related Data Allergies Allergy/AdvReac Type Severity Reaction Status Date / Time No Known Allergies Allergy Verified 02/02/19 19:21 Review of Systems Cardiovascular: Cardiovascular: Denies chest pain and Denies radiating jaw, neck or arm pain Respiratory: Respiratory: Denies cough and Denies dyspnea Gastrointestinal: Gastrointestinal: Denies nausea and Denies vomiting Musculoskeletal: Musculoskeletal: Reports arthralgias and Reports joint swelling Integumentary/Breasts: Skin/Breast: Denies pruritus, Denies rash and Denies skin ulcer Neurologic: Denies vertigo, Denies dizziness and Denies syncope PMFSH Past Medical History Medical History (Updated 04/19/20 @ 14:44 by Horacio Lazcano MD) Alcoholism GERD (gastroesophageal reflux disease) Hypertension Pancreatitis Social History Social History Smoking packs per day: 1 Smoking cigarettes per day: 20.0 Years smoked: 12 Smoking pack-years: 12.00 Smoking status: Current every day smoker Tobacco type: cigarettes Second hand tobacco smoke exposure: Yes Alcohol intake: current Drinks per week: 8 Substance use: current Substance use type: marijuana Other substance usage details: last noc- 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 Resp: Effort & Inspection: normal respiratory effort Auscultation: clear to auscultation bilaterally, no rales, no rhonchi and no wheezes Cardio: Rate: regular rate Rhythm: regular rhythm Heart sounds: no murmurs Skin: General skin exam: normal color, no jaundice and no pallor Rashes: no rashes Neuro: General: patient oriented x3, moves all extremities, no focal motor deficits and CN's II-XI intact bilaterally Speech: normal speech Extrem: General: normal to inspection and no clubbing, cyanosis or edema Psych: Appearance: grossly normal and well kempt Mental Status: mental status grossly normal Affect: normal affect Thought content: Yes Normal thought content present Course Vital Signs Vital signs: Vital Signs Temperature 36.1 C L 04/19/20 12:59 Pulse Rate 99 04/19/20 12:59 Respiratory Rate 20 04/19/20 12:59 Blood Pressure 163/103 H 04/19/20 12:59 Pulse Oximetry 99 04/19/20 12:59 Temperature 36.1 C L 04/19/20 12:59 Pulse Rate 99 04/19/20 12:59 Respiratory Rate 20 04/19/20 12:59 Blood Pressure 163/103 H 04/19/20 12:59 Pulse Oximetry 99 04/19/20 12:59 MDM - Extremity Injury (Lower) Differential Diagnosis Differential diagnosis: Likely ankle sprain and strain and ankle fracture Imaging Data Radiologist's impression: ITS Impressions Ankle X-Ray 04/19/20 14:17 IMPRESSION: 1. Possible avulsion fracture of the lateral
[2020-04-19] MEDS: HYDROcodone/acetaminophen (*CRX) 5-325 MG TABLET 1 TAB PO (13:29)
[2020-04-19 15:03] VITALS: PULSE 90; RESP 20; O2SAT 99
== END 2020-04-19 15:05 | disposition home or self-care (01) ==
PROVIDERS: Emergency Provider Emergency Medicine; PCP Internal Medicine
DX: S82.401A Unspecified fracture of shaft of right fibula, initial encounter for closed fracture (principal); W01.0XXA Fall on same level from slipping, tripping and stumbling without subsequent striking against object, initial encounter
CPT/HCPCS: 73610; 99283; 99284; A9270; L2112

== ENCOUNTER 2020-04-20 15:32 | Inpatient (IN) | payer OTHER, SELFPAY ==
--- NOTE | ~2020-04-20 | CT_ITS ---
EXAMINATION: CT abdomen pelvis w con DATE: 04/20/2020 17:37 INDICATION: Generalized abdominal pain, nausea and vomiting. TECHNIQUE: Computed tomography (CT) of the abdomen and pelvis was performed with 100 cc Omnipaque 350 intravenous contrast. Automated exposure control and iterative reconstruction technique were employe d. Exam dose: 597.81 mGy-cm total exam DLP. COMPARISON: 04/08/2018 CT abdomen pelvis 02/01/2020 CT abdomen pelvis FINDINGS: There is a 4 mm pleural-based left lower lobe nodule, unchanged since 02/01/2020. This is st able since 04/08/2018 as well, consistent with benign process. No infiltrate or consolidation in the lower lung zones. Normal heart size. No pericardial or pleural effusion. There is a small sliding hiatal hernia. Diffuse hepatic steatosis. No hepatic space-occupying mass lesion is evident. The gallbladder is pres ent. No bile duct or pancreatic duct dilatation. There is diffuse peripancreatic fat stranding and mild fluid collection, consistent with acute inters titial edematous pancreatitis. No pancreatic calcification. Normal splenic size. Normal morphology of the adrenal glands. No renal mass lesion or urinary tract calculus or hydroureteronephrosis. Normal caliber of the abdominal aorta. There is some shoddy nonenlarged peripancreatic and aortocaval lymph nodes. No intra-abdominal or pelvic lymphadenopathy or inguinal adenopathy is noted. There is moderate diffuse thickening of the urinary bladder wall. Prostate gland appears normal size. There is a prominent of fecal material in the rectum and colon. No bowel obstruction is evident. Norm al appendix. Included skeletal structures are unremarkable. IMPRESSION: Acute edematous interstitial pancreatitis Small sliding hiatal hernia Diffuse hepatic steatosis Reviewed, dictated and finalized at Location [facility]. Reviewed, dictated and finalized at location A. ATE CHANGE RISK ASSESSOR
[2020-04-20 16:03] VITALS: BP 184/100; PULSE 76; RESP 18; TEMP 36.1; O2SAT 99
[2020-04-20] MEDS: ONDANSETRON INJ 4 MG/2 ML VIAL IV PUSH ×2 (16:33→19:19)
[2020-04-20] MEDS: HYDROmorphone HCL INJ (*CRX) 2 MG/ML VIAL 0.5 MG IV PUSH ×2 (16:33→19:19)
[2020-04-20] MEDS: SODIUM CHLORIDE 0.9% IV 1,000 ML 999 ML IV CONT (16:33)
[2020-04-20 16:51] LABS: Add Urine Microscopic? YES; Appearance Urine Clear (Clear); Bilirubin Urine Negative (Negative); Blood Urine Negative (Negative); Color Urine Amber (Yellow); Glucose Urine UA Negative (Negative); Ketones Urine 1+ (Negative); Leukocyte Esterase Ur Negative LEU/UL (Negative); Nitrate Urine Negative (Negative); Protein Urine 1+ (Negative); Specific Grav Ur 1.025 (1.010-1.020); Urobilinogen Urine 0.2 mg/dL (0.2-1.0)
[2020-04-20 16:52] LABS: Basophils Absolute Auto 0.02 K/mm3 (0.00-0.10); Basophils Percent Auto 0.3 % (0.0-1.0); Eosinophils Absolute Auto 0.09 K/mm3 (0.02-0.50); Eosinophils Percent Auto 1.2 % (1.0-6.0); Hematocrit 41.4 % (40.0-54.0); Hemoglobin 14.5 g/dL (14.0-18.0); Immature Granulocyte Absolute 0.02 K/mm3 (0.00-0.00); Immature Granulocyte Percent A 0.3 % (0.0-0.0); Immature Platelet Fraction Pct 4.2 % (1.0-7.0); Lymphocytes Absolute Auto 0.69 K/mm3 (1.10-4.50); Lymphocytes Percent Auto 9.1 % (18.0-42.0); Mean Corpuscular Hemoglobin 33.1 pg (27.0-31.0); Mean Corpuscular Volume 94.5 fL (78.0-102.0); Mean Platelet Volume 10.1 fl (8.7-11.0); Monocytes Absolute Auto 0.64 K/mm3 (0.10-0.90); Monocytes Percent Auto 8.5 % (2.0-11.0); Neutrophils Absolute Auto 6.1 K/mm3 (1.7-7.2); Neutrophils Percent Auto 80.6 % (50.0-70.0); Platelet Count Result 130 K/mm3 (150-420); Red Blood Count 4.38 M/mm3 (4.70-6.10); Red Cell Distribution Width 12.3 % (11.6-14.4); White Blood Count 7.6 K/mm3 (4.8-10.8)
[2020-04-20 16:59] LABS: RBC Urine None seen /hpf (0-2); WBC Urine None seen /hpf (0-3)
[2020-04-20 17:00] VITALS: BP 156/101
[2020-04-20 17:00] LABS: Bacteria Urine Trace /hpf; Mucus Urine Moderate /lpf; Squamous Epithelial Cell Urine Rare /hpf (Few)
[2020-04-20 17:12] LABS: Lactic Acid Reflex 0.6 mmol/L (0.4-2.0)
[2020-04-20 17:17] LABS: Alanine Aminotransferase 86 U/L (16-63); Alkaline Phosphatase 92 U/L (46-116); Anion Gap 11 mmol/L (8-16); Aspartate Amino Transferase 53 U/L (15-37); Bilirubin,Total 0.7 mg/dL (0.00-1.00); Blood Urea Nitrogen 14 mg/dL (7-18); Calcium 9.2 mg/dL (8.5-10.1); Carbon Dioxide 26 mmol/L (21-32); Chloride 97 mmol/L (98-108); Estimated CRCL calculation 210 ml/min; Estimated Glomerular Filt Rate > 60; Glucose 115 mg/dL (70-99); Lipase 1565 U/L (73-393); Osmolality Calculated 279 mOsm/kg (285-295); Potassium 3.5 mmol/L (3.5-5.1); Sodium 134 mmol/L (136-145); Total Protein 8.1 g/dL (6.4-8.2); Troponin I 5.3 ng/L (0.00-60.4)
--- NOTE | 2020-04-20 18:15 | ED.ABDPAIN ---
HPI - Abdominal Pain General Chief Complaint: Abdominal Pain Stated Complaint: abd pain,vomiting Source: patient and family Mode of arrival: ambulatory Limitations: no limitations History of Present Illness HPI narrative: this is a 29-year-old male with a history of chronic pancreatitis and alcohol abuse, recent fracture of his lower extremity was seen few days ago for the foot fracture. Currently having abdominal pain left upper quadrant radiating into his left flank that started earlier today, patient claims he has not had a drink in approximately 1 week. The pain is rated about an 8 of 10 with some nausea and episode of vomiting, with no fever chills no shortness of breath. Currently no diarrhea or constipation MD elicited complaint: abdominal pain and flank pain Pertinent past history: other ( pancreatitis) Onset (ago): hour(s) Pain Consistency: constant Location: [facility] Severity: severe Pain scale (0-10): 8 Quality: aching Radiation: LUQ Migration to: L flank Exacerbating factors: eating Relieving factors: nothing Associated symptoms: nausea and vomiting Related Data Allergies Allergy/AdvReac Type Severity Reaction Status Date / Time No Known Allergies Allergy Verified 02/02/19 19:21 Review of Systems Review of Systems: All systems reviewed & are unremarkable except as noted in HPI and below PMFSH Past Medical History Medical History (Updated 04/20/20 @ 18:20 by Arsenio Samano MD) Alcoholism GERD (gastroesophageal reflux disease) Hypertension Pancreatitis Social History Social History Smoking packs per day: 1 Smoking cigarettes per day: 20.0 Years smoked: 12 Smoking pack-years: 12.00 Smoking status: Current every day smoker Tobacco type: cigarettes Second hand tobacco smoke exposure: Yes Alcohol intake: current Drinks per week: 8 Substance use: current Substance use type: marijuana Other substance usage details: 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 noc- 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 Last use: last noc Gender identity (if verbalized by the patient): Male Spiritual care concerns: No Agree to blood products: Yes Exam Const: General: no acute distress Orientation/consciousness: patient oriented x3 HENMT: Head: normal to inspection Eyes: Conjunctivae: conjunctivae normal Pupils: Equal, round and reactive pupils present EOM: EOMs intact bilaterally Neck: Neck: normal visual inspection and no lymphadenopathy Chest: Chest palpation & inspection: normal inspection of the chest Resp: Effort & Inspection: normal respiratory effort Auscultation: clear to auscultation bilaterally Cardio: Rate: regular rate Rhythm: regular rhythm GI: GI Palp: Yes Soft to palpation and Yes Tenderness to palpation present (GI) Back/Spine/Pelvis: Back: no CVA tenderness Skin: General skin exam: normal color Rashes: no rashes Neuro: General: patient oriented x3 and moves all extremities Extrem: General: normal to inspection and no pedal edema Psych: Appearance: grossly normal Mental Status: mental status grossly normal Affect: normal affect Course Course Emergency Course: patient continues to have pain despite given Dilaudid and nausea though has improved with Zofran I advised patient that we will be admitting with some IV hydration pain control and to be kept NPO. Vital Signs Vital signs: Vital Signs Temperature 36.1 C L 04/20/20 16:03 Pulse Rate 76 04/20/20 16:03 Respiratory Rate 18 04/20/20 16:03 Blood Pressure 184/100 H 04/20/20 16:03 Pulse Oximetry 99 04/20/20 16:03 Temperature 36.1 C L 04/20/20 16:03 Pulse Rate 76 04/20/20 16:03 Respiratory Rate 18 04/20/20 16:03 Blood Pressure 156/101 H 04/20/20 17:00 Pulse Oximetry 99 04/20/20 16:03 MDM - Abdominal Pain Lab Data Result diagrams: 04/20/20 16:36 04/20/20 16:36 Labs: Lab Results 04/20/20 04/20/20 04/20/20 Range/Units
[2020-04-20 18:55] VITALS: BP 169/114; PULSE 68; RESP 18; TEMP 36.9; O2SAT 98
--- NOTE | 2020-04-20 18:55 | ADMGEN ---
This patient, James Crow, was admitted to 2nd Floor Room 226-2. Patient/family oriented to hospital policies and general routines including ID bracelet, bed and alarms, visiting hours, pain management, procedures, bathroom and other care routines, personal items, smoking policy, room service/diet, and visiting hours. Information on how to activate the Rapid Response Team has been discussed. Patient/Family are encouraged to report perceived risks to care and to ask questions if they do not understand what they are told or what they should do.
[2020-04-20] MEDS: SODIUM CHLORIDE 0.9% IV 1,000 ML 100 ML IV CONT (19:18)
[2020-04-20 19:50] VITALS: PULSE 68; RESP 18; O2SAT 98
[2020-04-20 20:12] VITALS: BMI 24.3
--- NOTE | 2020-04-20 22:31 | ADMGEN ---
This patient, James Crow, was admitted to 2nd Floor Room 226-2. Patient/family oriented to hospital policies and general routines including ID bracelet, bed and alarms, visiting hours, pain management, procedures, bathroom and other care routines, personal items, smoking policy, room service/diet, and visiting hours. Information on how to activate the Rapid Response Team has been discussed. Patient/Family are encouraged to report perceived risks to care and to ask questions if they do not understand what they are told or what they should do. NS @ 100ml started via 20# IV right hand. Diluadid 2mg given IV as well for pain. Patient currently having dry heaves. States he was vomiting early in the day. States he has not vomited since about noonish.
[2020-04-20 23:50] VITALS: BP 170/101; PULSE 73; RESP 20; TEMP 36.8; O2SAT 95
[2020-04-21] MEDS: HYDROmorphone HCL INJ (*CRX) 2 MG/ML VIAL 0.5 MG IV PUSH ×5 (00:36→23:40)
[2020-04-21 00:48] VITALS: BP 166/104
[2020-04-21 04:00] VITALS: BP 157/99; PULSE 76; RESP 20; TEMP 37.3; O2SAT 95
[2020-04-21 05:53] LABS: Basophils Absolute Auto 0.01 K/mm3 (0.00-0.10); Basophils Percent Auto 0.1 % (0.0-1.0); Eosinophils Absolute Auto 0.22 K/mm3 (0.02-0.50); Eosinophils Percent Auto 3.1 % (1.0-6.0); Hemoglobin 14.8 g/dL (14.0-18.0); Immature Granulocyte Absolute 0.02 K/mm3 (0.00-0.00); Immature Granulocyte Percent A 0.3 % (0.0-0.0); Immature Platelet Fraction Pct 4.9 % (1.0-7.0); Lymphocytes Absolute Auto 1.21 K/mm3 (1.10-4.50); Lymphocytes Percent Auto 17.1 % (18.0-42.0); Mean Corpuscular HGB Conc 34.4 g/dL (32.0-36.0); Mean Corpuscular Hemoglobin 32.5 pg (27.0-31.0); Mean Corpuscular Volume 94.3 fL (78.0-102.0); Mean Platelet Volume 10.1 fl (8.7-11.0); Monocytes Absolute Auto 0.64 K/mm3 (0.10-0.90); Monocytes Percent Auto 9.1 % (2.0-11.0); Neutrophils Percent Auto 70.3 % (50.0-70.0); Platelet Count Result 130 K/mm3 (150-420); Red Blood Count 4.56 M/mm3 (4.70-6.10); Red Cell Distribution Width 12.3 % (11.6-14.4); White Blood Count 7.1 K/mm3 (4.8-10.8)
[2020-04-21] MEDS: SODIUM CHLORIDE 0.9% IV 1,000 ML 100 ML IV CONT ×2 (05:56→16:08)
[2020-04-21 06:14] LABS: Alanine Aminotransferase 64 U/L (16-63); Albumin Level 3.6 g/dL (3.4-5.0); Alkaline Phosphatase 87 U/L (46-116); Anion Gap 13 mmol/L (8-16); Aspartate Amino Transferase 37 U/L (15-37); Bilirubin,Total 0.7 mg/dL (0.00-1.00); Blood Urea Nitrogen 10 mg/dL (7-18); Calcium 8.9 mg/dL (8.5-10.1); Carbon Dioxide 24 mmol/L (21-32); Chloride 98 mmol/L (98-108); Estimated CRCL calculation 203 ml/min; Estimated Glomerular Filt Rate > 60; Glucose 95 mg/dL (70-99); Lipase 1125 U/L (73-393); Osmolality Calculated 279 mOsm/kg (285-295); Potassium 3.5 mmol/L (3.5-5.1); Sodium 135 mmol/L (136-145); Total Protein 7.8 g/dL (6.4-8.2)
[2020-04-21 07:30] VITALS: BP 148/55; PULSE 76; RESP 18; TEMP 36.4; O2SAT 97
--- NOTE | 2020-04-21 08:26 | PM.IMHP ---
H&P: HPI History of Present Illness Date/Time: 04/21/20 08:26 <SUSANNE Quispe - Last Filed: 04/21/20 08:47> Chief Complaint: Abdominal pain with nausea vomiting <SUSANNE Quispe - Last Filed: 04/21/20 08:47> Narrative: James Crow is a 29 year old male who presented to urgent care with abdominal pain and nausea and vomiting. PMX chronic pancreatitis with alcohol abuse GERD and hypertension. Patient is well-known to this facility due to his chronic pancreatitis. According to patient he developed pain to his left upper quadrant that radiated to his left flank that started yesterday. He also noted of having nausea and vomiting. On admission patient's 1565 with elevated liver enzymes. All other labs within normal limits. CT of his abdomen did indicate pancreatitis. today patient notes that his abdominal pain is currently resolved, his pain is being controlled with his pain medication we will advance his diet to a clear liquid. Patient will remain an additional day to his lipase has improved. The patient denies SOB, CP, palpitation, extremity numbness, lightheadedness, dizziness, constipation, diarrhea, chills, or fever. This document was completed by using [employer] speech recognition software, therefore director of materials management variances may occur. Despite proofreading, typographical errors may also occur. <SUSANNE Quispe - Last Filed: 04/21/20 08:47> Review of Systems Review of Systems: All systems reviewed & are unremarkable except as noted in HPI and below (10 point system review) <SUSANNE Quispe - Last Filed: 04/21/20 08:47> [facility] Past Medical History Medical History: Medical History (Updated 04/20/20 @ 18:20 by Arsenio Samano MD) Alcoholism GERD (gastroesophageal reflux disease) Hypertension Pancreatitis <SUSANNE Quispe - Last Filed: 04/21/20 08:47> Social History Social History: Social History Smoking packs per day: 0.5 Smoking cigarettes per day: 10.0 Years smoked: 14 Smoking pack-years: 7.00 Smoking status: Light tobacco smoker Tobacco type: cigarettes Second hand tobacco smoke exposure: Yes Alcohol intake: current Drinks per week: 8 Substance use: current Substance use type: marijuana Other substance usage details: last noc- 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 Last use: last noc Gender identity (if verbalized by the patient): Male Sexual Orientation (if Verbalized by the Patient): Straight or Heterosexual Spiritual care concerns: Yes (Orthodox) Agree to blood products: Yes <SUSANNE Quispe - Last Filed: 04/21/20 08:47> Meds Home Medications and Allergies Home medications: Home Medications Medication Instructions Recorded Confirmed Type ondansetron HCl [Zofran] 4 mg PO Q8H PRN #14 tablet 02/02/20 04/20/20 Rx crutch #2 ea 04/19/20 04/20/20 Rx hydrocodone-acetaminophen [[place]] 1 tablet PO Q6H PRN #10 tablet 04/19/20 04/20/20 Rx <SUSANNE Quispe - Last Filed: 04/21/20 08:47> Allergies/Adverse reactions: Allergies Allergy/AdvReac Type Severity Reaction Status Date / Time No Known Allergies Allergy Verified 02/02/19 19:21 <SUSANNE Quispe - Last Filed: 04/21/20 08:47> Vital Signs Vital Signs - 24 hr 04/20/20 16:03 04/20/20 17:00 04/20/20 18:55 Temperature 97 F L 98.5 F Pulse Rate 76 68 Respiratory Rate 18 18 Blood Pressure 184/100 H 156/101 H 169/114 H Pulse Oximetry 99 98 04/20/20 19:50 04/20/20 23:50 04/21/20 00:48 Temperature 98.2 F Pulse Rate 68 73 Respiratory Rate 18 20 Blood Pressure 170/101 H 166/104 H Pulse Oximetry 98 95 04/21/20 04:00 Temperature 99.1 F Pulse Rate 76 Respiratory Rate 20 Blood Pressure 157/99 H Pulse Oximetry 95 <SUSANNE Quispe - Last Filed: 04/21/20 08:47> Exam Narrative: Exam Narrative: GENERAL: This is a we
[2020-04-21] MEDS: PANTOPRAZOLE SODIUM IV 40 MG VIAL IV PUSH (09:36)
[2020-04-21] MEDS: hydrALAZINE 10 MG TABLET 5 MG PO ×4 (09:37→20:04)
[2020-04-21 16:10] VITALS: BP 143/103; PULSE 66; RESP 18; TEMP 36.6; O2SAT 97
--- NOTE | 2020-04-21 16:43 | PC.NURSE ---
MD notified that patient c/o nausea. Zofran 4mg IVP Q6H prn ordered.
[2020-04-21] MEDS: ONDANSETRON INJ 4 MG/2 ML VIAL IV PUSH (17:08)
[2020-04-21 17:15] LABS: Lipase 512 U/L (73-393)
[2020-04-22] VITALS: BP 152/98; PULSE 72; RESP 18; TEMP 34.1; O2SAT 95
[2020-04-22] MEDS: SODIUM CHLORIDE 0.9% IV 1,000 ML 100 ML IV CONT (01:43)
[2020-04-22] MEDS: HYDROmorphone HCL INJ (*CRX) 2 MG/ML VIAL 0.5 MG IV PUSH (05:48)
[2020-04-22 07:20] VITALS: BP 155/96; PULSE 71; RESP 18; TEMP 37.4; O2SAT 98
[2020-04-22] MEDS: hydrALAZINE 10 MG TABLET 5 MG PO (09:02)
[2020-04-22] MEDS: PANTOPRAZOLE SODIUM IV 40 MG VIAL IV PUSH (09:02)
[2020-04-22 10:33] LABS: Hematocrit 42.1 % (40.0-54.0); Hemoglobin 14.6 g/dL (14.0-18.0); Immature Platelet Fraction Pct 3.8 % (1.0-7.0); Mean Corpuscular HGB Conc 34.7 g/dL (32.0-36.0); Mean Corpuscular Hemoglobin 32.8 pg (27.0-31.0); Mean Corpuscular Volume 94.6 fL (78.0-102.0); Mean Platelet Volume 10.3 fl (8.7-11.0); Platelet Count Result 138 K/mm3 (150-420); Red Blood Count 4.45 M/mm3 (4.70-6.10); Red Cell Distribution Width 12.2 % (11.6-14.4); White Blood Count 5.9 K/mm3 (4.8-10.8)
[2020-04-22 10:40] LABS: Anion Gap 9 mmol/L (8-16); Blood Urea Nitrogen 9 mg/dL (7-18); Calcium 9.1 mg/dL (8.5-10.1); Carbon Dioxide 26 mmol/L (21-32); Chloride 98 mmol/L (98-108); Estimated CRCL calculation 190 ml/min; Estimated Glomerular Filt Rate > 60; Glucose 104 mg/dL (70-99); Lipase 604 U/L (73-393); Osmolality Calculated 274 mOsm/kg (285-295); Potassium 3.8 mmol/L (3.5-5.1); Sodium 133 mmol/L (136-145)
--- NOTE | 2020-04-22 10:49 | P.DS_ITS ---
DS: Admitting Diagnosis Admitting Diagnosis Admitting Diagnosis: Abdominal pain <Gina Arias LELANDChong - Last Filed: 04/22/20 10:58> DS: Discharge Diagnosis Discharge Diagnosis (1) Acute pancreatitis: Qualifiers: Acute pancreatitis complication: unspecified Pancreatitis type: unspecified pancreatitis type Qualified Code(s): K85.90 - Acute pancreatitis without necrosis or infection, unspecified <Gina Arias HAND SIGN WRITER-C - Last Filed: 04/22/20 10:58> Code(s): K85.90 - Acute pancreatitis without necrosis or infection, unspecified <Gina Arias LELANDChong - Last Filed: 04/22/20 10:58> Status: Acute <Gina Arias HAND SIGN WRITERRocioGail - Last Filed: 04/22/20 10:58> Assessment and Plan: * CT of the abdomen indicate-Acute edematous interstitial pancreatitis * On admission patient [id number] --> 1125--> 500-->604 <Gina Arias HAND SIGN WRITERRocioGail - Last Filed: 04/22/20 10:58> (2) Elevated liver enzymes: Code(s): R74.8 - Abnormal levels of other serum enzymes <Gina Arias HAND SIGN WRITER-C - Last Filed: 04/22/20 10:58> Status: Acute <Gina Arias HAND SIGN WRITERRocioGail - Last Filed: 04/22/20 10:58> Assessment and Plan: * Secondary to alcohol * Educated patient on cessation <Gina Arias HAND SIGN WRITER-C - Last Filed: 04/22/20 10:58> (3) Vomiting: Qualifiers: Nausea presence: with nausea Vomiting Intractability: intractable Vomiting type: unspecified Qualified Code(s): R11.2 - Nausea with vomiting, unspecified <Gina Arias HAND SIGN WRITER-C - Last Filed: 04/22/20 10:58> Code(s): R11.10 - Vomiting, unspecified <Gina Arias HAND SIGN WRITER-C - Last Filed: 04/22/20 10:58> Status: Acute <Gina Arias HAND SIGN WRITER-C - Last Filed: 04/22/20 10:58> Assessment and Plan: * Resolved * Zosyn ordered <Gina Arias HAND SIGN WRITER-C - Last Filed: 04/22/20 10:58> (4) Abdominal pain: Qualifiers: Abdominal location: right upper quadrant Qualified Code(s): R10.11 - Right upper quadrant pain <Gina AriasSUSANNE - Last Filed: 04/22/20 10:58> Code(s): R10.9 - Unspecified abdominal pain <Gina AriasSUSANNE - Last Filed: 04/22/20 10:58> Status: Acute <Gina AriasSUSANNE - Last Filed: 04/22/20 10:58> Assessment and Plan: * Secondary to pancreatitis caused by alcohol abuse * CT indicate pancreatitis <Gina AriasSUSANNE - Last Filed: 04/22/20 10:58> (5) GERD (gastroesophageal reflux disease): Code(s): K21.9 - Gastro-esophageal reflux disease without esophagitis <Gnia AriasSSUANNE - Last Filed: 04/22/20 10:58> Status: Acute <Gina AriasSUSANNE - Last Filed: 04/22/20 10:58> Assessment and Plan: * Started Protonix IV push <Gina AriasSUSANNE - Last Filed: 04/22/20 10:58> (6) Hypertension: Code(s): I10 - Essential (primary) hypertension <Gina AriasSUSANNE - Last Filed: 04/22/20 10:58> Status: Acute <Gina AriasSUSANNE - Last Filed: 04/22/20 10:58> Assessment and Plan: * Blood pressure stable * Patient does not take home medication * Follow-up primary care physician <Christophernelsy ShaliniSUSANNE Stacy - Last Filed: 04/22/20 10:58> (7) Alcoholism: Code(s): F10.20 - Alcohol dependence, uncomplicated <Gina Perez SUSANNE Arias - Last Filed: 04/22/20 10:58> Status: Acute <Christophernelsy ShaliniSUSANNE Stacy - Last Filed: 04/22/20 10:58> Assessment and Plan: * educated on cessation * Patient notes he has not had a drink in 1 week * naltr
--- NOTE | 2020-04-22 10:49 | PM.DS ---
DS: Admitting Diagnosis Admitting Diagnosis Admitting Diagnosis: Abdominal pain <Gina Perez SUSANNE Arias - Last Filed: 04/22/20 10:58> DS: Discharge Diagnosis Discharge Diagnosis (1) Acute pancreatitis: Qualifiers: Acute pancreatitis complication: unspecified Pancreatitis type: unspecified pancreatitis type Qualified Code(s): K85.90 - Acute pancreatitis without necrosis or infection, unspecified <Christophernelsy LoyaSUSANNE Stacy - Last Filed: 04/22/20 10:58> Code(s): K85.90 - Acute pancreatitis without necrosis or infection, unspecified <Gina Perez SUSANNE Arias - Last Filed: 04/22/20 10:58> Status: Acute <Gina AriasSUSANNE - Last Filed: 04/22/20 10:58> Assessment and Plan: CT of the abdomen indicate-Acute edematous interstitial pancreatitis On admission patient [id number] --> 1125--> 500-->604 <Gina LoyaSUSANNE Stacy - Last Filed: 04/22/20 10:58> (2) Elevated liver enzymes: Code(s): R74.8 - Abnormal levels of other serum enzymes <Christophernelsy ShaliniSUSANNE Stacy - Last Filed: 04/22/20 10:58> Status: Acute <Gina AriasSUSANNE - Last Filed: 04/22/20 10:58> Assessment and Plan: Secondary to alcohol Educated patient on cessation <SUSANNE Quispe - Last Filed: 04/22/20 10:58> (3) Vomiting: Qualifiers: Nausea presence: with nausea Vomiting Intractability: intractable Vomiting type: unspecified Qualified Code(s): R11.2 - Nausea with vomiting, unspecified <Gina ShaliniSUSANNE Stacy - Last Filed: 04/22/20 10:58> Code(s): R11.10 - Vomiting, unspecified <Gina ShaliniSUSANNE Stacy - Last Filed: 04/22/20 10:58> Status: Acute <Gina ShaliniSUSANNE Stacy - Last Filed: 04/22/20 10:58> Assessment and Plan: Resolved Zosyn ordered <JERRY QuispeGail - Last Filed: 04/22/20 10:58> (4) Abdominal pain: Qualifiers: Abdominal location: right upper quadrant Qualified Code(s): R10.11 - Right upper quadrant pain <Gina AriasSUSANNE - Last Filed: 04/22/20 10:58> Code(s): R10.9 - Unspecified abdominal pain <Gina AriasSUSANNE - Last Filed: 04/22/20 10:58> Status: Acute <Gina AriasLELANDRocioGail - Last Filed: 04/22/20 10:58> Assessment and Plan: Secondary to pancreatitis caused by alcohol abuse CT indicate pancreatitis <Gina AriasLELANDRocioGail - Last Filed: 04/22/20 10:58> (5) GERD (gastroesophageal reflux disease): Code(s): K21.9 - Gastro-esophageal reflux disease without esophagitis <Gina AriasSUSANNE - Last Filed: 04/22/20 10:58> Status: Acute <Gina AriasLELANDRocioGail - Last Filed: 04/22/20 10:58> Assessment and Plan: Started Protonix IV push <Gina AriasLELANDRocioGail - Last Filed: 04/22/20 10:58> (6) Hypertension: Code(s): I10 - Essential (primary) hypertension <Gina AriasSUSANNE - Last Filed: 04/22/20 10:58> Status: Acute <Gina AriasLELANDRocioGail - Last Filed: 04/22/20 10:58> Assessment and Plan: Blood pressure stable Patient does not take home medication Follow-up primary care physician <Gina AriasSUSANNE - Last Filed: 04/22/20 10:58> (7) Alcoholism: Code(s): F10.20 - Alcohol dependence, uncomplicated <Gina AriasSUSANNE - Last Filed: 04/22/20 10:58> Status: Acute <Gina AriasSUSANNE - Last Filed: 04/22/20 10:58> Assessment and Plan: educated on cessation Patient notes he has not had a drink in 1 week naltrexone 50 mg daily started <Gina Arias, DIALYSIS EQUIPMENT TECHNICIAN-C - Last Filed: 04/22/20 10:58> DS: Summary Hospital Course Hospital Course: James Crow is a 29 year old male who presented to the ED with abdominal pain and nausea and vomiting. PMX chronic pancreatitis with alcohol abuse GERD and hypertension. Patient is well-known to this facility due
--- NOTE | 2020-04-23 11:14 | PC.NURSE ---
Invalid phone number for discharge call back.
== END 2020-04-22 12:25 | disposition home or self-care (01) | DRG 282 ==
LOC: CHSED 18:20 → CHS2ND 18:28
PROVIDERS: Nurse Practitioner; Admitting Provider Emergency Medicine; Emergency Provider Emergency Medicine; PCP Internal Medicine; Visit Provider Emergency Medicine
DX: K85.90 Acute pancreatitis without necrosis or infection, unspecified (principal); K86.1 Other chronic pancreatitis; F10.20 Alcohol dependence, uncomplicated; F17.200 Nicotine dependence, unspecified, uncomplicated; K21.9 Gastro-esophageal reflux disease without esophagitis; I10 Essential (primary) hypertension; F12.90 Cannabis use, unspecified, uncomplicated; F17.210 Nicotine dependence, cigarettes, uncomplicated; S92.909D Unspecified fracture of unspecified foot, subsequent encounter for fracture with routine healing; S82.891D Other fracture of right lower leg, subsequent encounter for closed fracture with routine healing
CPT/HCPCS: 36415; 74177; 80048; 80053; 81001; 83605; 83690; 84484; 85025; 85027; 85055; 96361; 96374; 96375; 99285; A9270; C9113; J1170; J1650; J2405; J7030; Q9967

== ENCOUNTER 2020-05-18 13:21 | Outpatient (CLI) | payer OTHER, SELFPAY ==
--- NOTE | ~2020-05-18 | XR_ITS ---
XR ankle RT min 3V DATE: 05/18/2020 13:44 INDICATION: Right lateral malleolar avulsion fracture TECHNIQUE: 4 views COMPARISON: None FINDINGS: Small linear bony density with cortication is situated just beyond the tip of the lateral m alleolus may be consistent with an old avulsion fracture. No recent fracture or dislocation of the ankle or disruption of the ankle mortise is noted otherwise. IMPRESSION: Probable small old cortical avulsion fracture from the tip of the lateral malleolus Reviewed, dictated and finalized at location A. LE APPLICATION ENGINEER IMPRESSION: Probable small old cortical avulsion fracture from the tip of the l ateral malleolus
== END 2020-05-18 13:22 | disposition home or self-care (01) ==
PROVIDERS: PCP Internal Medicine; Visit Provider Internal Medicine
DX: S82.61XD Displaced fracture of lateral malleolus of right fibula, subsequent encounter for closed fracture with routine healing (principal)
CPT/HCPCS: 73610

== ENCOUNTER 2020-05-19 17:57 | Emergency (ER) | payer OTHER, SELFPAY ==
[2020-05-19 19:15] VITALS: BP 156/90; PULSE 90; RESP 20; TEMP 36.5; O2SAT 97
--- NOTE | 2020-05-19 19:27 | ECG_ITS ---
Measurements Intervals [place] Rate: 100 P: 58 [place]: 106 QRS: 67 QRSD: 97 T: 61 QT: 324 QTc: 418 Interpretive Statements SINUS TACHYCARDIA WITH SHORT [place] INTERVAL BORDERLINE ECG Electronically Signed On 05-20-2020 6:53:39 BIOLOGICAL CHEMIST by Aroldo Hughes D.O.
[2020-05-19 19:46] LABS: Basophils Absolute Auto 0.04 K/mm3 (0.00-0.10); Basophils Percent Auto 0.8 % (0.0-1.0); Eosinophils Absolute Auto 0.16 K/mm3 (0.02-0.50); Eosinophils Percent Auto 3.3 % (1.0-6.0); Hematocrit 40.1 % (40.0-54.0); Hemoglobin 13.8 g/dL (14.0-18.0); Immature Granulocyte Absolute 0.01 K/mm3 (0.00-0.00); Immature Granulocyte Percent A 0.2 % (0.0-0.0); Immature Platelet Fraction Pct 3.8 % (1.0-7.0); Lymphocytes Absolute Auto 1.97 K/mm3 (1.10-4.50); Mean Corpuscular HGB Conc 34.4 g/dL (32.0-36.0); Mean Corpuscular Hemoglobin 33.6 pg (27.0-31.0); Mean Corpuscular Volume 97.6 fL (78.0-102.0); Mean Platelet Volume 9.9 fl (8.7-11.0); Monocytes Percent Auto 6.2 % (2.0-11.0); Neutrophils Absolute Auto 2.3 K/mm3 (1.7-7.2); Neutrophils Percent Auto 48.5 % (50.0-70.0); Platelet Count Result 139 K/mm3 (150-420); Red Blood Count 4.11 M/mm3 (4.70-6.10); Red Cell Distribution Width 13.2 % (11.6-14.4); White Blood Count 4.8 K/mm3 (4.8-10.8)
[2020-05-19 20:09] LABS: Alanine Aminotransferase 214 U/L (16-63); Albumin Level 3.9 g/dL (3.4-5.0); Alkaline Phosphatase 83 U/L (46-116); Anion Gap 15 mmol/L (8-16); Aspartate Amino Transferase 211 U/L (15-37); Bilirubin,Total 0.2 mg/dL (0.00-1.00); Blood Urea Nitrogen 12 mg/dL (7-18); Calcium 8.4 mg/dL (8.5-10.1); Carbon Dioxide 26 mmol/L (21-32); Chloride 104 mmol/L (98-108); Estimated CRCL calculation 139 ml/min; Estimated Glomerular Filt Rate > 60; Glucose 196 mg/dL (70-99); Osmolality Calculated 304 mOsm/kg (285-295); Potassium 3.6 mmol/L (3.5-5.1); Sodium 145 mmol/L (136-145); Total Protein 7.6 g/dL (6.4-8.2)
[2020-05-19 20:10] LABS: Acetaminophen < 2 ug/mL (10-30)
[2020-05-19 20:11] LABS: Salicylate 6.2 mg/dL (2.8-20.0); Thyroid Stimulating Hormone 0.54 uIU/mL (0.36-3.74)
[2020-05-19 20:12] LABS: Ethanol 280 mg/dL (0-6)
--- NOTE | 2020-05-19 20:30 | PC.NURSE ---
Pt. sipping water and is cooperative c care. Suicide precautions initiated and pt. is in close observation c camera on. See suicide obs. flowsheet.
[2020-05-19 21:06] LABS: Add Urine Microscopic? NO; Appearance Urine Clear (Clear); Bilirubin Urine Negative (Negative); Blood Urine Negative (Negative); Color Urine Yellow (Yellow); Glucose Urine UA Negative (Negative); Ketones Urine Negative (Negative); Leukocyte Esterase Ur Negative (Negative); Nitrate Urine Negative (Negative); Protein Urine Negative (Negative); Specific Grav Ur 1.025 (1.010-1.020); Urobilinogen Urine 0.2 mg/dL (0.2-1.0)
[2020-05-19 21:12] LABS: Amphetamine Screen Urine Negative (Negative); Barbiturate Screen Urine Negative (Negative); Benzodiazepines Screen Urine Negative (Negative); Cannabinoid Screen Urine Positive (Negative); Cocaine Screen Urine Negative (Negative); Methadone Screen Urine Negative (Negative); Opiate Screen Urine Negative (Negative); Phencyclidine Screen Urine Negative (Negative)
--- NOTE | 2020-05-19 21:44 | ED.ALCOHOL ---
HPI - Alcohol General Chief Complaint: Psychiatric Symptoms Stated Complaint: psych eval Time Seen by Provider: 05/19/20 19:20 Source: patient Mode of arrival: EMS Limitations: no limitations History of Present Illness HPI narrative: This young man comes in stating he has had thoughts of suicide. He had a plan to hang himself, and had thought this through. He has stated he has had problems with substance abuse and depression for years. Chronic alcohol use: Yes Previous visits for alcohol intoxication: Yes Associated symptoms: suicidality Treatments prior to arrival: none Related Data Allergies Allergy/AdvReac Type Severity Reaction Status Date / Time No Known Allergies Allergy Verified 02/02/19 19:21 Review of Systems Constitutional: Constitutional: Reports no additional constitutional complaints Eyes: Eyes: Reports no additional eye complaints ENT: Reports system reviewed and no additional complaints, except as documented Cardiovascular: Cardiovascular: Reports no additional cardiovascular complaints Respiratory: Respiratory: Reports no additional respiratory complaints Gastrointestinal: Gastrointestinal: Reports no additional gastrointestinal complaints Genitourinary: Genitourinary: Reports no additional male genitourinary complaints Musculoskeletal: Musculoskeletal: Reports no additional musculoskeletal complaints Integumentary/Breasts: Skin/Breast: Reports system reviewed and no additional complaints, except as docu Neurologic: Reports system reviewed and no additional complaints, except as documented Psychiatric: Psychiatric: Reports no additional psychiatric complaints Endocrine: Endocrine: Reports no additional endocrine complaints Hematologic/Lymphatic: Hematologic/Lymphatic: Reports no additional hematologic/lymphatic complaints Allergic/Immunologic: Allergic/Immunologic: Reports no additional allergic/immunologic complaints [facility] Past Medical History Medical History (Updated 05/19/20 @ 22:28 by Deepak Andrade MD) Alcoholism GERD (gastroesophageal reflux disease) Hypertension Pancreatitis Surgical History Surgical History (Updated 05/19/20 @ 22:04 by Deepak Andrade MD) No significant past surgical history Family History Family History (Updated 05/19/20 @ 22:12 by Deepak Andrade MD) Mother Diabetes mellitus Social History Social History Smoking packs per day: 0.5 Smoking cigarettes per day: 10.0 Years smoked: 14 Smoking pack-years: 7.00 Smoking status: Light tobacco smoker Tobacco type: cigarettes Second hand tobacco smoke exposure: Yes Alcohol intake: current Drinks per week: 8 Substance use: current Substance use type: marijuana Other substance usage details: last noc- has been drinking hand guardian family member Last use: last noc Gender identity (if verbalized by the patient): Male Spiritual care concerns: Yes (Confucianist) Agree to blood products: Yes Exam Const: General: no acute distress Orientation/consciousness: patient oriented x3 HENMT: Head: normal to inspection Ears: external ears normal General nose exam: Normal external nose present Face and sinus: normal facial exam Throat: posterior oropharynx normal Eyes: Conjunctivae: conjunctivae normal Neck: Neck: normal visual inspection Chest: Chest palpation & inspection: normal inspection of the chest Resp: Effort & Inspection: normal respiratory effort Auscultation: clear to auscultation bilaterally Cardio: Rate: regular rate Rhythm: regular rhythm GI: GI Palp: Yes Soft to palpation (nontender) Skin: General skin exam: normal color Neuro: General: patient oriented x3 and moves all extremities Extrem: General: normal to inspection Psych: Appearance: grossly normal Course Course Emergency Course: Labs, and an EKG were performed. We will repeat a alcohol level later, when it is reasonable to believe it has dropped. Sign out
--- NOTE | 2020-05-20 | PC.NURSE ---
Pt. sleeping, sitter at bedside
--- NOTE | 2020-05-20 04:00 | PC.NURSE ---
Pt continues to be under close supervision c minervater at bedside
--- NOTE | 2020-05-20 06:46 | PC.NURSE ---
Pt continues to be monitored, no changes, pt. sleeping, see obs. flowsheet.
--- NOTE | 2020-05-20 07:11 | PC.NURSE ---
THIS RN TOOK REPORT FROM DEPARTING RNCORINNA. PATIENT IS BEING HELD FOR OBSERVATION FOR SUICIDAL THOUGHTS AND ETOH INTOXICATION. DEPARTING RN WAS UNABLE TO OBTAIN ADMINISTRATIVE ASST/BEDSIDE SITTER. PT IS CURRENTLY IN ER PSYCH HOLDING ROOM UNDER VIDEO SURVEILLANCE. ER NURSE PAINTER AND DECORATOR AWARE. ERP AWARE.
[2020-05-20 07:18] LABS: Ethanol < 3 mg/dL (0-6)
--- NOTE | 2020-05-20 10:02 | PC.NURSE ---
CRISIS METAL EXPEDITER ARRIVED TO ED FOR PATIENT EVALUATION, CURRENTLY AT BEDSIDE. PT IS CALM AND COOPERATIVE. RN OFFERED PT BREAKFAST, PATIENT REFUSED. WILL CONTINUE TO MONITOR CLOSELY.
[2020-05-20 10:30] VITALS: BP 160/102; PULSE 66; RESP 20; TEMP 37.6; O2SAT 100
--- NOTE | 2020-05-20 10:37 | PC.NURSE ---
CRISIS TEAM STATES PATIENT IS NO LONGER SUICIDAL AND IS NOT HOMICIDAL AT THIS TIME. NISHANT STATES THAT PATIENT CAN BE DISCHARGED HOME TO CONTINUE SEEKING DRUG TREATMENT FACILITIES. NISHANT ALSO STATES THAT THE PATIENT WILL BE GIVEN FOLLOW UP INFORMATION FOR PSYCHIATRIC TREATMENT. CHESTNUT PIER MASTER ASSISTANT, FRANKLYN, CONTACTED WHO STATES PATIENT CAN CALL HER THIS AFTERNOON FOR PHONE INTERVIEW AND POSSIBLE INPATIENT DRUG TREATMENT THIS WEEK. ERP MADE AWARE.
[2020-05-20 11:25] VITALS: BP 163/103; PULSE 103; RESP 16; TEMP 36.8; O2SAT 98
== END 2020-05-20 11:25 | disposition home or self-care (01) ==
PROVIDERS: Emergency Medicine; Emergency Provider Emergency Medicine; PCP Internal Medicine
DX: R45.851 Suicidal ideations (principal); F10.20 Alcohol dependence, uncomplicated; K21.9 Gastro-esophageal reflux disease without esophagitis; I10 Essential (primary) hypertension; Z87.891 Personal history of nicotine dependence; F12.90 Cannabis use, unspecified, uncomplicated
CPT/HCPCS: 36415; 80053; 80307; 81003; 84443; 85025; 85055; 93005; 99284